=== PATIENT | female | born 1975 | race Caucasian/White ===

== ENCOUNTER 2022-06-16 09:15 | Outpatient (REF) | payer BC, SELFPAY ==
[2022-06-16 11:27] LABS: MANUAL DIFF FLAG NO
[2022-06-16 11:50] LABS: Basophils Percent Auto 0.6 % (0-2); Eosinophils Absolute Auto 0.3 X10*3/uL (0.0-0.4); Eosinophils Percent Auto 4.8 % (0-4); Hematocrit 44.7 % (37.0-47.0); Hemoglobin 14.3 g/dl (12.0-16.0); Imm Gran Abs Auto 0.02 X10*3/uL (0.00-0.03); Imm Gran Pct Auto 0.3 % (0.0-0.4); Lymphocytes Absolute Auto 2.1 X10*3/uL (1.2-4.9); Lymphocytes Percent Auto 32.8 % (20-40); Mean Corpuscular Hemoglobin 30.3 pg (27.0-33.0); Mean Corpuscular Volume 94.7 fL (80.0-98.0); Mean Platelet Volume 9.7 fL (9.4-12.3); Monocytes Absolute Auto 0.5 X10*3/uL (0.1-1.2); Neutrophils Absolute Auto 3.5 x10*3/uL (2.0-8.3); Neutrophils Percent Auto 54.5 % (45-73); Platelet Count 274 X10*3/uL (160-400); Red Blood Count 4.72 X10*6/uL (4.20-5.50); Red Cell Distribution Width 12.2 % (11.0-16.0); White Blood Count 6.5 X10*3/uL (4.8-10.8)
[2022-06-16 13:28] LABS: Alanine Aminotransferase 33 U/L (0-31); Albumin Level 4.2 g/dL (3.5-5.0); Alkaline Phosphatase 95 U/L (39-117); Anion Gap 9 (12-20); Aspartate Amino Transferase 18 U/L (5-31); Bilirubin Total 0.4 mg/dL (0.0-1.0); Blood Urea Nitrogen 19 mg/dL (9-16); Calcium 9.6 mg/dL (8.4-10.2); Carbon Dioxide 29 mmol/L (22-29); Chloride 106 mmol/L (96-108); Cholesterol 177 mg/dL; Estimated Glomerular Filt Rate > 60; Glucose Fasting 103 mg/dL (60-99); HDL Cholesterol 48 mg/dL; LDL Cholesterol Calculated 119 mg/dl; Potassium 4.1 mmol/L (3.3-5.1); Sodium 140 mmol/L (135-145); TSH reflex Free T4 1.47 uIU/mL (0.32-4.0); Triglycerides 54 mg/dL
[2022-06-17 18:48] LABS: Follicle Stimulating Hormone 124.8 mIU/mL; Lutenizing Hormone 64.4 mIU/mL
[2022-06-22 12:19] LABS: Vitamin D 25-OH, D2 <4 ng/mL; Vitamin D 25-OH, D3 24 ng/mL; Vitamin D 25-OH, Total 24 ng/mL (30-100)
== END 2022-06-16 09:16 | disposition home or self-care (01) ==
LOC: HO.MAMMO 09:15
PROVIDERS: PCP Internal Medicine; Visit Provider Internal Medicine
DX: Z00.01 Encounter for general adult medical examination with abnormal findings (principal); E66.09 Other obesity due to excess calories; R23.2 Flushing
CPT/HCPCS: 36415; 80053; 80061; 82306; 83001; 83002; 84443; 85025

== ENCOUNTER 2022-06-23 13:51 | Outpatient (REF) | payer BC, SELFPAY ==
--- NOTE | ~2022-06-23 | MM_ITS ---
EXAMINATION: MM SCREENING DIGITAL BREAST TOMOSYNTHESIS, BILATERAL CLINICAL INFORMATION: Screening. Asymptomatic. The lifetime risk of breast cancer based on the Tyrer-Cuzick Model is 14%. COMPARISON: Outside mammography: 08/09/2020, 06/18/2019, 06/16/2019 ([facility]) TECHNIQUE: Digital breast tomosynthesis is performed in both the craniocaudal and mediolateral oblique views along with computer-aided detection (CAD). Synthesized 2D images are generated from the tomosynthesis. FINDINGS: The breasts are heterogeneously dense, which may obscure small masses (ACR BI-RADS breast composition Category c). There is no developing density or mass or architectural abnormality. Small oval asymmetry central left breast on CC view is stable from prior outside studies. There are no abnormal calcifications on the left. The bilateral axilla are stable from prior exam. The skin contours are smooth. Right breast has loosely grouped calcifications mid upper outer quadrant. They are questionably increased since 2019. Patient will be recalled for additional magnification views to fully characterize. MM/MM tomosynthesis screening BI IMPRESSION: Right: -Calcifications mid upper outer quadrant possibly increased since prior outside studies. Left: -No mammographic evidence of malignancy. ASSESSMENT: BI-RADS 0: Incomplete - Need Additional Imaging Evaluation RECOMMENDATION: 1. Additional views of the right breast (magnification CC, magnification ML). 2. Radiology department staff will contact the patient for additional imaging. This patient's information was entered into a reminder system with a target due date for their next mammogram.
== END 2022-06-23 13:52 | disposition home or self-care (01) ==
LOC: HO.MAMMO 13:51
PROVIDERS: PCP Internal Medicine; Visit Provider Internal Medicine
DX: Z12.31 Encounter for screening mammogram for malignant neoplasm of breast (principal)
CPT/HCPCS: 77063; 77067

== ENCOUNTER 2022-06-29 12:52 | Outpatient (REF) | payer BC, SELFPAY ==
--- NOTE | ~2022-06-29 | MM_ITS ---
EXAMINATION: MM DIAGNOSTIC DIGITAL MAMMOGRAPHY, RIGHT CLINICAL INFORMATION: Recall from screening for loosely grouped calcifications mid upper outer right breast questionably increased since 2019. COMPARISON: Mammography: 06/23/2022, outside diagnostic right mammography 06/18/2019 and 06/16/2019 ([facility]) TECHNIQUE: Digital mammography is performed in the following views: Magnification CC, magnification ML FINDINGS: The breasts are heterogeneously dense, which may obscure small masses (ACR BI-RADS breast composition Category c). The additional magnification views show increased benign layering milk of calcium calcifications in the mid upper outer right breast since outside mammography 2019. Slightly more anterior in this area are non layering fine punctate round calcifications which are similar to the outside diagnostic exam. There are no significant changes. Results are discussed with the patient at time of visit. MM/MM added views RT IMPRESSION: No significant change in the right breast calcifications upper outer quadrant when compared with prior outside diagnostic exam 2019. ASSESSMENT: BI-RADS 2: Benign RECOMMENDATION: Routine annual mammography screening. This patient's information was entered into a reminder system with a target due date for their next mammogram.
== END 2022-06-29 12:53 | disposition home or self-care (01) ==
LOC: HO.MAMMO 12:52
PROVIDERS: PCP Internal Medicine; Visit Provider Internal Medicine
DX: R92.1 Mammographic calcification found on diagnostic imaging of breast (principal)
CPT/HCPCS: 77065

== ENCOUNTER 2023-06-06 11:34 | Outpatient (AMB) | payer BC, SELFPAY ==
--- NOTE | 2023-06-06 11:36 | MHC.PC.OV ---
Vital Signs 06/06/23 11:42 Height 5 ft 4 in Weight 214 lb 6 oz BMI 36.8 BP 112/64 Blood Pressure Location Rt brachial Position Sitting Pulse 79 Pulse Source Pulse Oximeter Pulse Oximetry (%) 96 Oxygen Delivery Method Room Air Intake Visit Reasons: Annual PE Allergies penicillins Adverse Reaction (Mild, Uncoded 05/31/22 11:57) Rash Medication List - Last Reconciled 06/06/23 by Dave Rodriguez MD No Known Home Meds Tobacco use date assessed: 06/06/23 Dental Screening Dental Screen Date: 06/06/23 Did you have a dental visit in the last 12 months?: Yes Did you have a dental problem in the last 6 months where you did not have access to dental care?: No Was dental information given to patient?: Patient has dentist HPI Annual PE HPI Details Patient is a 48-year-old female came in today for physical examination Patient is established with [facility] OBGYN breast exams and Pap smears are through them Patient is struggling with weight loss, BMI is 36.8 she has gained more weight since last year Patient says that she has tried weight watchers 3 times, she goes to gym 3 times a week and is careful with her diet but still has not been able to lose any weight. She works from home We discussed side effect of phentermine also that it is a controlled medication and will need monthly visits for monitoring Patient will have baseline labs done today and then we can start the medication. Print out of drug information given to the patient. Flu vaccine was given today [facility] Social History Housing: House Patient Tobacco Use Status: Never used Tobacco e-Cigarette/Vaping Use: Never Used service: No Current occupational status: employed Cognitive needs: No Hearing needs: No Vision needs: No Questionnaire PHQ-9 Over the last 2 weeks, how often have you been bothered by any of the following problems? 1. Little interest or pleasure in doing things: several days 2. Feeling down, depressed, or hopeless: several days 3. Trouble falling or staying asleep, or sleeping too much: several days 4. Feeling tired or having little energy: more than half the days 5. Poor appetite or overeating: not at all 6. Feeling bad about yourself - or that you are a failure or have let yourself or your family down: several days 7. Trouble concentrating on things, such as reading the newspaper or watching television: not at all 8. Moving or speaking so slowly that other people could have noticed. Or the opposite - being so fidgety or restless that you have been moving around a lot more than usual: not at all 9. Thoughts that you would be better off or of hurting yourself in some way: not at all Total score: 6 Depression Screening Interpretation: Negative Depression Screening Done: Yes 83830 - PHQ-9 Billing: Yes Source: Developed by Drs. Alexandre Torres, Sydnee Bragg, Quirino Acharya and colleagues, with an educational hernando from [employer]. Thrive Questionnaire Date Thrive assessed: 05/31/22 AUDIT C Alcohol Use Questionnaire (AUDIT-C) 1. How often do you have a drink containing alcohol?: Monthly or less 2. How many drinks containing alcohol do you have on a typical day when you are drinking?: 1 or 2 3. How often do you have six or more drinks on one occasion?: Never Total Score: 1 Score Reviewed/Action Taken: Yes SANDRA-7 AMB Questionnaire SANDRA-7 Date SANDRA - 7 assessed: 06/06/23 Feeling nervous, anxious, or on edge: 1 = Several days Not being able to stop or control worryin = Not at all Worrying too much about different things: 0 = Not at all Trouble relaxin = Not at all Being so restless that it is hard to sit still: 0 = Not at all Becoming easily annoyed or irritable: 1 = Several days Feeling afraid as if something awful might happen: 0 = Not at all Total SANDRA-7 score (0-4 normal; 5-9 mild; 10-14 moderate; 15-21 severe): 2 Source: Developed by Drs. Alexandre Torres, Sydnee Bragg, Quirino Acharya and colleagues, with an educational hernando from [employer]. SANDRA-7 Assessment Billing SANDRA-7 Assessment Tool: SANDRA-7 Assessment 08416 Review of Systems Const Denies chills, Denies fever(s) and Denies headache(s) Eyes Denies blurry vision ENT Denies headache(s), Denies nasal discharge, Denies nasal obstruction, Denies odynophagia and Denies sinus pain Card Denies chest pain at rest and Denies chest pain with activity Resp Denies cough and Denies hemoptysis GI Denies diarrhea, Denies odynophagia, Denies vomiting and Denies hematemesis Reports as per HPI Musc Denies abnormal gait Skin/Breast Reports as per HPI Neuro Denies Neuro-related abnormal movements, Denies Abnormal speech present, Denies abnormal gait, Denies headache(s) and Denies Sensory deficit (Neuro) Psych Denies mood swings and Denies paranoia Endo Reports as per HPI Armani/Lymph Reports as per HPI Aller/Immun Reports as per HPI Physical exam (Primary Care) Vital Signs: Last Vital Signs Pulse 79 06/06/23 11:42 BP 112/64 06/06/23 11:42 Pulse Ox 96 06/06/23 11:42 Oxygen Delivery Method Room Air 06/06/23 11:42 BMI result Body Mass Index 36.8 Tobacco/Smoking Status: Tobacco use Status Tobacco use date assessed 06/06/23 06/06/23 11:38 Patient Tobacco Use Status Never used Tobacco 06/06/23 11:38 e-Cigarette/Vaping Use Never Used 06/06/23 11:38 PHQ-9: PHQ-9 Score PHQ-9: Total score 6 06/06/23 12:21 Depression Screening Interpretation: Negative Thrive Assessment: Date of Thrive Assessment Date Thrive assessed 05/31/22 06/06/23 11:38 Const General: cooperative, comfortable and no acute distress Orientation/consciousness: patient oriented x3 HENMT Head: Yes normocephalic and Yes atraumatic Eyes General: appearance normal, both eyes and all related structures Pupils: Equal, round and reactive pupils present EOM: EOMs intact bilaterally Neck Neck: Yes supple and No lymphadenopathy Thyroid: Thyroid normal Lymphatic: no lymphadenopathy noted Resp Effort & Inspection: normal respiratory effort and able to speak in complete sentences Auscultation: clear to auscultation bilaterally Cardio Heart sounds: S1 normal heart sound present and S2 normal heart sound present GI Palpation (GI): Soft to palpation and nontender Auscultation: normal bowel sounds General: Yes no CVA tenderness Back/Spine/Pelvis Back: no CVA tenderness Skin General skin exam: elasticity normal and turgor normal Neuro General: patient oriented x3 and gait normal Cranial nerves: Yes Equal, round and reactive pupils present Speech: No Abnormal speech present Sensory Exam: No Sensory deficit (Neuro) Coordination: tandem gait normal and Romberg test negative Extrem General: Yes normal exam except as noted and No edema Office Procedures Flu Questionnaire Does the patient have a severe egg allergy?: No Does the patient have severe life threatening allergies?: No Does the patient have a fever or illness today?: No Has the patient ever had Guillain-[place] Syndrome?: No Has the patient ever had any past reaction to a flu shot?: No Immunizations flu vacc [id number] 6mos up(PF) 60 mcg(15 mcgx4)/0.5 mL IM syringe Performing Provider: Dave Rodriguez MD Performing Location: [facility] Administered by: Micah Whipple CMA on 06/06/23 12:10 Dose Route Admin Location Dispensed Lot Number Expiration Date NDC [place] 0.5 mL IM Left Deltoid 0.5 mL [id number] 01/06/24 [id number] [employer] VIS Given Date VIS Provided VIS Publication Date 06/06/23 Single Vaccine 21 Eligibility Eligibility Date Funding Source Not [facility] Eligible 06/06/23 Private Assessment and Plan Assessment & Plan (1) Encounter for general adult medical examination with abnormal findings: Code(s): Z00.01 - Encounter for general adult medical examination with abnormal findings (2) Obesity due to excess calories: Code(s): E66.09 - Other obesity due to excess calories Qualifiers: Body mass index: BMI 36.0-36.9 Obesity classification: adult class 2 (BMI 35 - 39.9) Serious obesity comorbidity presence: without serious comorbidity Qualified Code(s): E66.09 - Other obesity due to excess calories; Z68.36 - Body mass index [BMI] 36.0-36.9, adult (3) Impaired fasting blood sugar: Code(s): R73.01 - Impaired fasting glucose (4) Vitamin D deficiency: Code(s): E55.9 - Vitamin D deficiency, unspecified Plan Patient is a 48-year-old female came in today for physical examination Patient is established with [facility] OBGYN breast exams and Pap smears are through them Patient is struggling with weight loss, BMI is 36.8 she has gained more weight since last year Patient says that she has tried weight watchers 3 times, she goes to gym 3 times a week and is careful with her diet but still has not been able to lose any weight. She works from home We discussed side effect of phentermine also that it is a controlled medication and will need monthly visits for monitoring Patient will have baseline labs done today and then we can start the medication. Print out of drug information given to the patient. Flu vaccine was given today Patient will have Cologuard test rather than colonoscopy Mammogram is up-to-date Orders: Orders Complete Blood Count Auto Diff Today E55.9 - Vitamin D deficiency, unspecified, E66.09 - Other obesity due to excess calories, R73.01 - Impaired fasting glucose, Z00.01 - Encounter for general adult medical examination with abnormal findings Comprehensive [place]. Panel Fast Today E55.9 - Vitamin D deficiency, unspecified, E66.09 - Other obesity due to excess calories, R73.01 - Impaired fasting glucose, Z00.01 - Encounter for general adult medical examination with abnormal findings Lipid Panel Today E55.9 - Vitamin D deficiency, unspecified, E66.09 - Other obesity due to excess calories, R73.01 - Impaired fasting glucose, Z00.01 - Encounter for general adult medical examination with abnormal findings TSH reflex Free T4 Today E55.9 - Vitamin D deficiency, unspecified, E66.09 - Other obesity due to excess calories, R73.01 - Impaired fasting glucose, Z00.01 - Encounter for general adult medical examination with abnormal findings Influenza [id number] Immunization Today Z23 - Encounter for immunization Vitamin D 25-OH (D2 and D3) Today E55.9 - Vitamin D deficiency, unspecified, E66.09 - Other obesity due to excess calories, R73.01 - Impaired fasting glucose, Z00.01 - Encounter for general adult medical examination with abnormal findings Medications: New phentermine must administer 2 hours after breakfast 15 mg PO DAILY 30 caps 0RF Coding Level of Care Code Est Pt Prev Care 40-64y(25041) Diagnoses Encounter for general adult medical examination with abnormal findings Z00.01 Class 2 obesity due to excess calories without serious comorbidity with body mass index (BMI) of 36.0 to 36.9 in adult E66.09; Z68.36 Body mass index: BMI 36.0-36.9 Obesity classification: adult class 2 (BMI 35 - 39.9) Serious obesity comorbidity presence: without serious comorbidity Impaired fasting blood sugar R73.01 Vitamin D deficiency E55.9 Additional Codes SANDRA-7 Assessment Billing - SANDRA-7 Assessment Tool: SANDRA-7 Assessment [id number] ([id number])
[2023-06-06 11:42] VITALS: BP 112/64; PULSE 79; O2SAT 96; BMI 36.8
== END 2023-06-06 12:31 | disposition home or self-care (01) ==
PROVIDERS: Visit Provider Internal Medicine
DX: Z00.00 Encounter for general adult medical examination without abnormal findings (principal); E66.09 Other obesity due to excess calories; Z68.36 Body mass index [BMI] 36.0-36.9, adult; Z23 Encounter for immunization; R73.01 Impaired fasting glucose; E55.9 Vitamin D deficiency, unspecified
CPT/HCPCS: 90471; 90686; 99396

== ENCOUNTER 2023-06-07 08:52 | Outpatient (REF) | payer BC, SELFPAY ==
[2023-06-07 11:52] LABS: MANUAL DIFF FLAG NO
[2023-06-07 12:08] LABS: Basophils Percent Auto 0.5 % (0-2); Eosinophils Absolute Auto 0.2 X10*3/uL (0.0-0.4); Hematocrit 46.2 % (37.0-47.0); Hemoglobin 14.6 g/dl (12.0-16.0); Imm Gran Abs Auto 0.03 X10*3/uL (0.00-0.03); Imm Gran Pct Auto 0.4 % (0.0-0.4); Lymphocytes Absolute Auto 1.9 X10*3/uL (1.2-4.9); Lymphocytes Percent Auto 25.1 % (20-40); Mean Corpuscular HGB Conc 31.6 g/dl (31.0-35.0); Mean Corpuscular Hemoglobin 30.2 pg (27.0-33.0); Mean Corpuscular Volume 95.7 fL (80.0-98.0); Mean Platelet Volume 10.2 fL (9.4-12.3); Monocytes Absolute Auto 0.5 X10*3/uL (0.1-1.2); Monocytes Percent Auto 6.3 % (2-11); Neutrophils Absolute Auto 4.8 x10*3/uL (2.0-8.3); Neutrophils Percent Auto 64.7 % (45-73); Platelet Count 275 X10*3/uL (160-400); Red Blood Count 4.83 X10*6/uL (4.20-5.50); Red Cell Distribution Width 12.6 % (11.0-16.0); White Blood Count 7.4 X10*3/uL (4.8-10.8)
[2023-06-07 12:32] LABS: Alanine Aminotransferase 22 U/L (0-31); Albumin Level 4.1 g/dL (3.5-5.0); Alkaline Phosphatase 83 U/L (39-117); Anion Gap 11 (12-20); Aspartate Amino Transferase 17 U/L (5-31); Bilirubin Total 0.3 mg/dL (0.0-1.0); Blood Urea Nitrogen 17 mg/dL (9-16); Carbon Dioxide 28 mmol/L (22-29); Chloride 108 mmol/L (96-108); Cholesterol 174 mg/dL (<200); Estimated Glomerular Filt Rate > 60; Glucose Fasting 110 mg/dL (60-99); HDL Cholesterol 48 mg/dL (>40); LDL Cholesterol Calculated 110 mg/dL (<100); Potassium 4.5 mmol/L (3.3-5.1); Sodium 142 mmol/L (135-145); Total Protein 7.4 g/dL (6.5-8.0); Triglycerides 82 mg/dL (<150)
[2023-06-07 12:53] LABS: TSH reflex Free T4 1.16 uIU/mL (0.32-4.0)
[2023-06-11 15:19] LABS: Vitamin D 25-OH, D2 <4 ng/mL; Vitamin D 25-OH, D3 20 ng/mL; Vitamin D 25-OH, Total 20 ng/mL (30-100)
== END 2023-06-07 08:53 | disposition home or self-care (01) ==
LOC: HO.HMGCLDS 08:52
PROVIDERS: PCP Internal Medicine; Visit Provider Internal Medicine
DX: Z00.01 Encounter for general adult medical examination with abnormal findings (principal); E66.09 Other obesity due to excess calories; R73.01 Impaired fasting glucose; E55.9 Vitamin D deficiency, unspecified
CPT/HCPCS: 36415; 80053; 80061; 82306; 84443; 85025

== ENCOUNTER 2023-07-11 13:09 | Outpatient (AMB) | payer BC, SELFPAY ==
[2023-07-11 13:14] VITALS: BP 120/72; PULSE 80; O2SAT 96; BMI 34.9
--- NOTE | 2023-07-11 13:14 | MHC.PC.OV ---
Vital Signs 07/11/23 13:14 Height 5 ft 4 in Weight 203 lb 8 oz BMI 34.9 BP 120/72 Blood Pressure Location Rt brachial Position Sitting Pulse 80 Pulse Source Pulse Oximeter Pulse Oximetry (%) 96 Oxygen Delivery Method Room Air Intake Visit Reasons: 1 month follow up Allergies penicillins Adverse Reaction (Mild, Uncoded 05/31/22 11:57) Rash Medication List - Last Reconciled 07/11/23 by Dave Rodriguez MD phentermine 15 mg PO DAILY Tobacco use date assessed: 07/11/23 Dental Screening Dental Screen Date: 07/11/23 Did you have a dental visit in the last 12 months?: Yes Did you have a dental problem in the last 6 months where you did not have access to dental care?: No Was dental information given to patient?: Patient has dentist HPI 1 month follow up HPI Details Patient is a 48-year-old female came in today to be evaluated for medication side effect Patient was started on phentermine she was able to lose weight on it From 214 lb 6 oz June 06, and today she is 203 lb and 8 oz . Patient is tolerating medication there are no side effects. She is also going to start eating healthy and exercise more. She has been on vacation of this time. I have sent another month of medication we will re-evaluate in 4 weeks [facility] Social History Housing: House Patient Tobacco Use Status: Never used Tobacco e-Cigarette/Vaping Use: Never Used service: No Current occupational status: employed Cognitive needs: No Hearing needs: No Vision needs: No Questionnaire PHQ-9 Over the last 2 weeks, how often have you been bothered by any of the following problems? 1. Little interest or pleasure in doing things: several days 2. Feeling down, depressed, or hopeless: several days 3. Trouble falling or staying asleep, or sleeping too much: not at all 4. Feeling tired or having little energy: several days 5. Poor appetite or overeating: not at all 6. Feeling bad about yourself - or that you are a failure or have let yourself or your family down: not at all 7. Trouble concentrating on things, such as reading the newspaper or watching television: not at all 8. Moving or speaking so slowly that other people could have noticed. Or the opposite - being so fidgety or restless that you have been moving around a lot more than usual: not at all 9. Thoughts that you would be better off or of hurting yourself in some way: not at all Total score: 3 Depression Screening Interpretation: Negative Depression Screening Done: Yes 54545 - PHQ-9 Billing: Yes Source: Developed by Drs. Alexandre Torres, Sydnee Bragg, Quirino Acharya and colleagues, with an educational hernando from [employer]. Thrive Questionnaire Date Thrive assessed: 07/11/23 I am a: Patient What is your living situation today?: I have a steady place to live Within the past 12 months, did the food you bought not last and you didn't have the money to get more?: Never true Within the past 12 months, did you worry whether your food would run out before you got money to buy more?: Never true Do you have trouble paying for medicines?: No Do you have trouble getting transportation to medical appointments?: No Do you have trouble paying your heating and electricity bill?: No Do you have trouble taking care of your child, family member or friend?: No Do you have trouble with day-to-day activities such as bathing, preparing meals, shopping, managing finances, etc.?: No Are you currently unemployed and looking for a job?: No Are you interested in more education?: No Please select the resources that you would like help with: None Currently or been in a relationship where the following occur: no concerns reported AUDIT C Alcohol Use Questionnaire (AUDIT-C) 1. How often do you have a drink containing alcohol?: Monthly or less 2. How many drinks containing alcohol do you have on a typical day when you are drinking?: 1 or 2 3. How often do you have six or more drinks on one occasion?: Never Total Score: 1 Score Reviewed/Action Taken: Yes SANDRA-7 AMB Questionnaire SANDRA-7 Date SANDRA - 7 assessed: 07/11/23 Feeling nervous, anxious, or on edge: 2 = More than half the days Not being able to stop or control worryin = Several days Worrying too much about different things: 1 = Several days Trouble relaxin = Not at all Being so restless that it is hard to sit still: 0 = Not at all Becoming easily annoyed or irritable: 0 = Not at all Feeling afraid as if something awful might happen: 0 = Not at all Total SANDRA-7 score (0-4 normal; 5-9 mild; 10-14 moderate; 15-21 severe): 4 Source: Developed by Drs. Alexandre Torres, Sydnee Bragg, Quirino Acharya and colleagues, with an educational hernando from [employer]. SANDRA-7 Assessment Billing SANDRA-7 Assessment Tool: SANDRA-7 Assessment 43247 Review of Systems Const Denies chills and Denies fever(s) ENT Denies epistaxis and Denies nasal discharge Card Denies chest pain Resp Denies chest congestion, Denies cough and Denies hemoptysis GI Denies diarrhea and Denies nausea Skin/Breast Denies rash Neuro Reports no additional complaints Psych Reports no additional complaints Endo Reports no additional complaints Physical exam (Primary Care) Vital Signs: Last Vital Signs Pulse 80 07/11/23 13:14 BP 120/72 07/11/23 13:14 Pulse Ox 96 07/11/23 13:14 Oxygen Delivery Method Room Air 07/11/23 13:14 BMI result Body Mass Index 34.9 Tobacco/Smoking Status: Tobacco use Status Tobacco use date assessed 07/11/23 07/11/23 13:17 Patient Tobacco Use Status Never used Tobacco 07/11/23 13:17 e-Cigarette/Vaping Use Never Used 07/11/23 13:17 PHQ-9: PHQ-9 Score PHQ-9: Total score 3 07/11/23 13:29 Depression Screening Interpretation: Negative Thrive Assessment: Date of Thrive Assessment Date Thrive assessed 07/11/23 07/11/23 13:29 Currently or been in a relationship where the following occur: no concerns reported Const General: cooperative, comfortable and no acute distress Orientation/consciousness: patient oriented x3 HENMT Head: Yes normocephalic Eyes General: appearance normal, both eyes and all related structures Neck Neck: Yes supple Resp Effort & Inspection: normal respiratory effort, no cough and no stridor Cardio Rhythm: regular rhythm Heart sounds: S1 normal heart sound present and S2 normal heart sound present Skin General skin exam: turgor normal Neuro General: patient oriented x3, tone normal and moves all extremities Extrem Right lower extremity: no edema Left lower extremity: no edema Assessment and Plan Assessment & Plan (1) Obesity due to excess calories: Code(s): E66.09 - Other obesity due to excess calories Qualifiers: Obesity classification: adult class 2 (BMI 35 - 39.9) Serious obesity comorbidity presence: without serious comorbidity Body mass index: BMI 36.0-36.9 Qualified Code(s): E66.09 - Other obesity due to excess calories; Z68.36 - Body mass index [BMI] 36.0-36.9, adult Plan Patient is a 48-year-old female came in today to be evaluated for medication side effect Patient was started on phentermine she was able to lose weight on it From 214 lb 6 oz June 06, and today she is 203 lb and 8 oz . Patient is tolerating medication there are no side effects. She is also going to start eating healthy and exercise more. She has been on vacation of this time. I have sent another month of medication we will re-evaluate in 4 weeks Medications: Refilled phentermine must administer 2 hours after breakfast 15 mg PO DAILY 30 caps 0RF Coding Level of Care Code Est Pt Level 3 (01578) Diagnoses Class 2 obesity due to excess calories without serious comorbidity with body mass index (BMI) of 36.0 to 36.9 in adult E66.09; Z68.36 Obesity classification: adult class 2 (BMI 35 - 39.9) Serious obesity comorbidity presence: without serious comorbidity Body mass index: BMI 36.0-36.9 Additional Codes SANDRA-7 Assessment Billing - SANDRA-7 Assessment Tool: SANDRA-7 Assessment [id number] ([id number])
== END 2023-07-11 13:29 | disposition home or self-care (01) ==
PROVIDERS: PCP Internal Medicine; Visit Provider Internal Medicine
DX: E66.09 Other obesity due to excess calories (principal); Z68.36 Body mass index [BMI] 36.0-36.9, adult
CPT/HCPCS: 99213

== ENCOUNTER 2023-08-10 11:40 | Outpatient (AMB) | payer BC, SELFPAY ==
[2023-08-10 11:41] VITALS: BP 124/82; PULSE 70; O2SAT 97; BMI 34.0
--- NOTE | 2023-08-10 11:41 | A.OFFPC_ITS ---
Vital Signs 08/10/23 11:41 Height 5 ft 4 in Weight 198 lb 4 oz BMI 34.0 BP 124/82 Blood Pressure Location Rt brachial Position Sitting Pulse 70 Pulse Source Pulse Oximeter Pulse Oximetry (%) 97 Oxygen Delivery Method Room Air Intake Visit Reasons: 4 week fu Allergies penicillins Adverse Reaction (Mild, Uncoded 05/31/22 11:57) Rash Medication List - Last Reconciled 08/10/23 by Dave Rodriguez MD phentermine 15 mg PO DAILY Tobacco use date assessed: 08/10/23 Dental Screening Dental Screen Date: 08/10/23 Did you have a dental visit in the last 12 months?: Yes Did you have a dental problem in the last 6 months where you did not have access to dental care?: No Was dental information given to patient?: Patient has dentist HPI 4 week fu HPI Details Patient is a 48-year-old female came in today for her monthly visit for weight loss Patient's BMI is 34.0, she was able to lose 5 in 1 month on phentermine 15 mg Patient is having severe constipation since she started the medication I prescribing lactulose that she need to start along with Senokot S2 tablets every night She may continue MiraLax and prunes as well If this does not work then we need to stop the phentermine She had palpitation at night, patient is blaming stress at work We did EKG today which shows normal sinus rhythm 73 beats per minute, rhythm is regular Possible left atrial enlargement, I ordered echocardiogram as patient have family history of atrial fibrillation in her mother which started in her 60s She has no chest pain no shortness a breath nausea vomiting [facility] Social History Housing: House Patient Tobacco Use Status: Never used Tobacco e-Cigarette/Vaping Use: Never Used service: No Current occupational status: employed Cognitive needs: No Hearing needs: No Vision needs: No Questionnaire PHQ-9 Over the last 2 weeks, how often have you been bothered by any of the following problems? 1. Little interest or pleasure in doing things: several days 2. Feeling down, depressed, or hopeless: several days 3. Trouble falling or staying asleep, or sleeping too much: several days 4. Feeling tired or having little energy: several days 5. Poor appetite or overeating: not at all 6. Feeling bad about yourself - or that you are a failure or have let yourself or your family down: not at all 7. Trouble concentrating on things, such as reading the newspaper or watching television: several days 8. Moving or speaking so slowly that other people could have noticed. Or the opposite - being so fidgety or restless that you have been moving around a lot more than usual: not at all 9. Thoughts that you would be better off or of hurting yourself in some way: not at all Total score: 5 Depression Screening Interpretation: Negative Depression Screening Done: Yes 88621 - PHQ-9 Billing: Yes Source: Developed by Drs. Alexandre Torres, Sydnee Bragg, Quirino Acharya and colleagues, with an educational hernando from [employer]. Thrive Questionnaire Date Thrive assessed: 08/10/23 I am a: Patient What is your living situation today?: I have a steady place to live Within the past 12 months, did the food you bought not last and you didn't have the money to get more?: Never true Within the past 12 months, did you worry whether your food would run out before you got money to buy more?: Never true Do you have trouble paying for medicines?: No Do you have trouble getting transportation to medical appointments?: No Do you have trouble paying your heating and electricity bill?: No Do you have trouble taking care of your child, family member or friend?: No Do you have trouble with day-to-day activities such as bathing, preparing meals, shopping, managing finances, etc.?: No Are you currently unemployed and looking for a job?: No Are you interested in more education?: No Please select the resources that you would like help with: None Currently or been in a relationship where the following occur: no concerns reported THRIVE Score: 0 AUDIT C Alcohol Use Questionnaire (AUDIT-C) 1. How often do you have a drink containing alcohol?: Monthly or less 2. How many drinks containing alcohol do you have on a typical day when you are drinking?: 1 or 2 3. How often do you have six or more drinks on one occasion?: Never Total Score: 1 Score Reviewed/Action Taken: Yes SANDRA-7 AMB Questionnaire SANDRA-7 Date SANDRA - 7 assessed: 08/10/23 Feeling nervous, anxious, or on edge: 1 = Several days Not being able to stop or control worryin = Several days Worrying too much about different things: 1 = Several days Trouble relaxin = Not at all Being so restless that it is hard to sit still: 0 = Not at all Becoming easily annoyed or irritable: 1 = Several days Feeling afraid as if something awful might happen: 0 = Not at all Total SANDRA-7 score (0-4 normal; 5-9 mild; 10-14 moderate; 15-21 severe): 4 Source: Developed by Drs. Alexandre Torres, Sydnee Bragg, Quirino Acharya and colleagues, with an educational hernando from [employer]. SANDRA-7 Assessment Billing SANDRA-7 Assessment Tool: SANDRA-7 Assessment 89573 Review of Systems Const Denies chills and Denies fever(s) ENT Denies epistaxis and Denies nasal discharge Card Denies chest pain Resp Denies chest congestion, Denies cough and Denies hemoptysis GI Denies diarrhea and Denies nausea Skin/Breast Denies rash Neuro Reports no additional complaints Psych Reports no additional complaints Endo Reports no additional complaints Physical exam (Primary Care) Vital Signs: Last Vital Signs Pulse 70 08/10/23 11:41 BP 124/82 08/10/23 11:41 Pulse Ox 97 08/10/23 11:41 Oxygen Delivery Method Room Air 08/10/23 11:41 BMI result Body Mass Index 34.0 Tobacco/Smoking Status: Tobacco use Status Tobacco use date assessed 08/10/23 08/10/23 11:43 Patient Tobacco Use Status Never used Tobacco 08/10/23 11:43 e-Cigarette/Vaping Use Never Used 08/10/23 11:43 PHQ-9: PHQ-9 Score PHQ-9: Total score 5 08/10/23 12:41 Depression Screening Interpretation: Negative Thrive Assessment: Date of Thrive Assessment Date Thrive assessed 08/10/23 08/10/23 12:13 Currently or been in a relationship where the following occur: no concerns reported Const General: cooperative, comfortable and no acute distress Orientation/consciousness: patient oriented x3 HENMT Head: Yes normocephalic Eyes General: appearance normal, both eyes and all related structures Neck Neck: Yes supple Resp Effort & Inspection: normal respiratory effort, no cough and no stridor Cardio Rhythm: regular rhythm Heart sounds: S1 normal heart sound present and S2 normal heart sound present Skin General skin exam: turgor normal Neuro General: patient oriented x3, tone normal and moves all extremities Extrem Right lower extremity: no edema Left lower extremity: no edema Office Procedures EKG 92200-[id number], Complete Assessment and Plan Assessment & Plan (1) Palpitation: Code(s): R00.2 - Palpitations (2) Abnormal EKG: Code(s): R94.31 - Abnormal electrocardiogram [ECG] [EKG] (3) Obesity due to excess calories: Code(s): E66.09 - Other obesity due to excess calories Qualifiers: Body mass index: BMI 36.0-36.9 Obesity classification: adult class 2 (BMI 35 - 39.9) Serious obesity comorbidity presence: without serious comorbidity Qualified Code(s): E66.09 - Other obesity due to excess calories; Z68.36 - Body mass index [BMI] 36.0-36.9, adult (4) Constipation by delayed colonic transit: Code(s): K59.01 - Slow transit constipation Plan Patient is a 48-year-old female came in today for her monthly visit for weight loss Patient's BMI is 34.0, she was able to lose 5 in 1 month on phentermine 15 mg Patient is having severe constipation since she started the medication I prescribing lactulose that she need to start along with Senokot S2 tablets every night She may continue MiraLax and prunes as well If this does not work then we need to stop the phentermine She had palpitation at night, patient is blaming stress at work We did EKG today which shows normal sinus rhythm 73 beats per minute, rhythm is regular Possible left atrial enlargement, I ordered echocardiogram as patient have family history of atrial fibrillation in her mother which started in her 60s She has no chest pain no shortness a breath nausea vomiting Orders: Orders AMB EKG-In Office Today R00.2 - Palpitations CA echo transthoracic complete Today R94.31 - Abnormal electrocardiogram [ECG] [EKG] Medications: New lactulose 10 grams (15 mL) PO BEDTIME 600 mL 0RF Constipation Refilled phentermine must administer 2 hours after breakfast 15 mg PO DAILY 30 caps 0RF Coding Level of Care Code Est Pt Level 4 (80188) Diagnoses Palpitation R00.2 Abnormal EKG R94.31 Class 2 obesity due to excess calories without serious comorbidity with body mass index (BMI) of 36.0 to 36.9 in adult E66.09; Z68.36 Body mass index: BMI 36.0-36.9 Obesity classification: adult class 2 (BMI 35 - 39.9) Serious obesity comorbidity presence: without serious comorbidity Constipation by delayed colonic transit K59.01 CPT Codes EKG - CPT: 07844-[id number], Complete ([id number]) Additional Codes SANDRA-7 Assessment Billing - SANDRA-7 Assessment Tool: SANDRA-7 Assessment [id number] ([id number])
== END 2023-08-10 16:04 | disposition home or self-care (01) ==
PROVIDERS: PCP Internal Medicine; Visit Provider Internal Medicine
DX: R00.2 Palpitations (principal); R94.31 Abnormal electrocardiogram [ECG] [EKG]; E66.09 Other obesity due to excess calories; Z68.36 Body mass index [BMI] 36.0-36.9, adult; K59.01 Slow transit constipation
CPT/HCPCS: 93000; 99214

== ENCOUNTER 2023-09-05 12:30 | Outpatient (AMB) | payer BC, SELFPAY ==
--- NOTE | 2023-09-05 12:37 | A.OFFPC_ITS ---
Vital Signs 09/05/23 12:39 Height 5 ft 4 in Weight 197 lb 6 oz BMI 33.9 BP 124/80 Blood Pressure Location Rt brachial Position Sitting Pulse 75 Pulse Source Pulse Oximeter Pulse Oximetry (%) 93 Oxygen Delivery Method Room Air Intake Visit Reasons: 4 WK F/U per [place] Allergies penicillins Adverse Reaction (Mild, Uncoded 05/31/22 11:57) Rash Medication List - Last Reconciled 09/05/23 by Dave Rodriguez MD lactulose 20 grams (30 mL) PO BEDTIME 90 days phentermine 37.5 mg PO DAILY polyethylene glycol 3350 (Miralax) 17 grams PO DAILY 90 days topiramate (Topamax) 25 mg PO DAILY Tobacco use date assessed: 09/05/23 Dental Screening Dental Screen Date: 09/05/23 Did you have a dental visit in the last 12 months?: Yes Did you have a dental problem in the last 6 months where you did not have access to dental care?: No Was dental information given to patient?: Patient has dentist HPI 4 WK F/U per [place] HPI Details Doing well with phentermine however was not able to lose more than 1 lb Increasing the dose of phentermine 37.5, and adding Topamax 25 mg Constipation is slightly better with lactulose 15 mL I am increasing the dose to 20 mL, adding MiraLax, continue senna as [id number] 2 tablets daily Follow-up 4 weeks [facility] Social History Housing: House Patient Tobacco Use Status: Never used Tobacco e-Cigarette/Vaping Use: Never Used service: No Current occupational status: employed Cognitive needs: No Hearing needs: No Vision needs: No Questionnaire Thrive Questionnaire Date Thrive assessed: 08/10/23 AUDIT C Alcohol Use Questionnaire (AUDIT-C) 1. How often do you have a drink containing alcohol?: Monthly or less 2. How many drinks containing alcohol do you have on a typical day when you are drinking?: 1 or 2 3. How often do you have six or more drinks on one occasion?: Never Total Score: 1 Score Reviewed/Action Taken: Yes SANDRA-7 AMB Questionnaire SANDRA-7 Date SANDRA - 7 assessed: 08/10/23 Source: Developed by Drs. Alexandre Torres, Sydnee Bragg, Quirino Acharya and colleagues, with an educational hernando from [employer]. Review of Systems Const Denies chills and Denies fever(s) ENT Denies epistaxis and Denies nasal discharge Card Denies chest pain Resp Denies chest congestion, Denies cough and Denies hemoptysis GI Denies diarrhea and Denies nausea Skin/Breast Denies rash Neuro Reports no additional complaints Psych Reports no additional complaints Endo Reports no additional complaints Physical exam (Primary Care) Vital Signs: Last Vital Signs Pulse 75 09/05/23 12:39 BP 124/80 09/05/23 12:39 Pulse Ox 93 09/05/23 12:39 Oxygen Delivery Method Room Air 09/05/23 12:39 BMI result Body Mass Index 33.9 Tobacco/Smoking Status: Tobacco use Status Tobacco use date assessed 09/05/23 09/05/23 12:41 Patient Tobacco Use Status Never used Tobacco 09/05/23 12:41 e-Cigarette/Vaping Use Never Used 09/05/23 12:41 Thrive Assessment: Date of Thrive Assessment Date Thrive assessed 08/10/23 09/05/23 12:41 Const General: cooperative, comfortable and no acute distress Orientation/consciousness: patient oriented x3 HENMT Head: Yes normocephalic Eyes General: appearance normal, both eyes and all related structures Neck Neck: Yes supple Resp Effort & Inspection: normal respiratory effort, no cough and no stridor Cardio Rhythm: regular rhythm Heart sounds: S1 normal heart sound present and S2 normal heart sound present Skin General skin exam: turgor normal Neuro General: patient oriented x3, tone normal and moves all extremities Extrem Right lower extremity: no edema Left lower extremity: no edema Assessment and Plan Assessment & Plan (1) Obesity due to excess calories: Code(s): E66.09 - Other obesity due to excess calories Qualifiers: Obesity classification: adult class 2 (BMI 35 - 39.9) Serious obesity comorbidity presence: without serious comorbidity Body mass index: BMI 36.0- 36.9 Qualified Code(s): E66.09 - Other obesity due to excess calories; Z68.36 - Body mass index [BMI] 36.0-36.9, adult (2) Constipation by delayed colonic transit: Code(s): K59.01 - Slow transit constipation Plan Doing well with phentermine however was not able to lose more than 1 lb Increasing the dose of phentermine 37.5, and adding Topamax 25 mg Constipation is slightly better with lactulose 15 mL I am increasing the dose to 20 mL, adding MiraLax, continue senna as [id number] 2 tablets daily Follow-up 4 weeks Medications: New topiramate (Topamax) 25 mg PO DAILY 30 tabs 0RF polyethylene glycol 3350 (Miralax) 17 grams PO DAILY 1,530 grams 0RF 90 days Changed From phentermine must administer 2 hours after breakfast 15 mg PO DAILY 30 caps 0RF To phentermine must administer 2 hours after breakfast 37.5 mg PO DAILY 30 caps 0RF From lactulose 10 grams (15 mL) PO BEDTIME 600 mL 0RF Constipation To lactulose 20 grams (30 mL) PO BEDTIME 2,700 mL 0RF Constipation 90 days Coding Level of Care Code Est Pt Level 3 (01268) Diagnoses Class 2 obesity due to excess calories without serious comorbidity with body mass index (BMI) of 36.0 to 36.9 in adult E66.09; Z68.36 Obesity classification: adult class 2 (BMI 35 - 39.9) Serious obesity comorbidity presence: without serious comorbidity Body mass index: BMI 36.0-36.9 Constipation by delayed colonic transit K59.01
[2023-09-05 12:39] VITALS: BP 124/80; PULSE 75; O2SAT 93; BMI 33.9
== END 2023-09-05 13:21 | disposition home or self-care (01) ==
PROVIDERS: PCP Internal Medicine; Visit Provider Internal Medicine
DX: E66.09 Other obesity due to excess calories (principal); Z68.36 Body mass index [BMI] 36.0-36.9, adult; K59.01 Slow transit constipation
CPT/HCPCS: 99213

== ENCOUNTER → 2023-09-06 09:58 | Outpatient (REF) | payer BC, SELFPAY ==
--- NOTE | ~2023-09-06 | MM_ITS ---
EXAMINATION: MM SCREENING DIGITAL BREAST TOMOSYNTHESIS, BILATERAL CLINICAL INFORMATION: Screening. Asymptomatic. COMPARISON: Mammography: This study is compared with prior exams dating back to 2019. TECHNIQUE: Digital breast tomosynthesis is performed in both the craniocaudal and mediolateral oblique views along with computer-aided detection (CAD). Synthesized 2D images are generated from the tomosynthesis. FINDINGS: The breasts are heterogeneously dense, which may obscure small masses (ACR BI-RADS breast composition Category c). There are no significant masses, abnormal calcifications, or other abnormalities. There is a focus of benign milk of calcium in the upper outer quadrant of the right breast. This has been previously evaluated with magnification imaging in June 2022. MM/MM tomosynthesis screening BI IMPRESSION: No mammographic evidence of malignancy. ASSESSMENT: BI-RADS BI-RADS 2 - Benign Findings RECOMMENDATION: Routine annual mammography screening. 1 year F/U This examination should not preclude the clinical evaluation of a suspicious palpable abnormality. This patient's information was entered into a reminder system with a target due date for their next mammogram.
--- NOTE | 2023-09-06 10:04 | CA_ITS ---
Transthoracic Echocardiogram Patient (Last, First, Middle): Chinyere Salas, Gender: Female Date of : 1975 Age: 48 Procedure Date: 09/06/2023 Procedure Type: Transthoracic Echocardiogram Location: OP Height: 162.56 cm Weight: 86.18 kg BSA: 1.91 m2 Heart Rate: bpm BP: 110 / 76 mmHg Recruiting Team Lead: TO Referring MD: Dave Rodriguez MD Symptoms: R94.31 - Abnormal electrocardiogram [ECG] [EKG] Study Quality: Adequate ECG Rhythm: Sinus Conclusions: - The left ventricular systolic function is normal. The calculated ejection fraction is 65% by biplane method. - No obvious valvular pathology seen on this study. Findings Left Ventricle Normal left ventricular cavity size. There is normal left ventricular wall thickness. The left ventricular systolic function is normal. The calculated ejection fraction is 65% by biplane method. There is no evidence of regional wall motion abnormalities. Evidence suggests grade I (mild) diastolic dysfunction. LV peak GLS -16.5%, suspect underestimation. Right Ventricle Normal right ventricular cavity size. There is low normal right ventricular systolic function. Atria Both atria are normal in size. Aortic Valve There is a normal trileaflet aortic valve. There is no aortic valve stenosis. There is no aortic valve regurgitation. Mitral Valve The mitral valve appears normal. There is no mitral valve regurgitation. There is no mitral valve stenosis. Pulmonic Valve There is trace pulmonic valve regurgitation. Tricuspid Valve There is trace tricuspid valve regurgitation. There is no evidence of pulmonary hypertension. Great Vessels The asc aorta and aortic arch are normal in size. Venous The inferior vena cava is normal in size and collapses greater than 50% with inspiration. Pericardium/Pleural There is no evidence of pericardial effusion. Prior Study Comparison No prior study available for comparison. Recommendations, Care & Conclusions No obvious valvular pathology seen on this study. Measurements 2D Linear Measurements IVSd: 1.03 0.6-0.9/0.6-1.0 cm LVIDd: 4.50 3.9-5.3/4.2-5.9 cm LVIDd Index: 2.36 2.4-3.2/2.2-3.1 cm/m2 LVIDs: 2.85 2.0-3.6 cm LVPWd: 0.99 0.7-1.1 cm LA Diam: 3.10 2.7-3.8/3.0-4.0 cm LAIDs Index: 1.62 1.5-2.3 cm/m2 LV Mass: 193.62 67-162/88-224 g LV Mass Index: 101.37 43-95/49-115 g/m2 LVOT Diam: 2.00 3.0+(-)1.3 cm 2D Systolic Function EF 4C: 68.50 >55% EF 2C: 60.00 >55% EF BiP: 65.20 >55% Mitral Valve MV Pk E: 0.48 MV PK A: 0.54 MV Decel Time: 190.00 E/A: 0.90 E'Lateral: 6.31 E'Medial: 4.35 E/E' Med: 11.00 E/E' Lat: 7.60 PHT: 56.00 MVA PHT: 3.93 Decel [place]: 2.53 Aortic Valve AoV Pk David: 1.25 AoV Mn David: 0.88 AoV VTI: 0.25 AoV Pk Grad: 6.00 Aov Mn Grad: 3.00 STEPHANIE Cont.VTI: 2.39 LVOT LVOT Pk David: 1.00 LVOT Mn David: 0.67 LVOT VTI: 0.19 LVOT Pk Grad: 4.00 LVOT Mn Grad: 2.00 LVOT Diam: 2.00 LVOT Area: 3.14 Diastolic Function MV Pk E: 0.48 MV Pk A: 0.54 E/A: 0.90 E'Medial: 4.35 E/E' Med: 11.00 E' Laterial: 6.31 E/E' Lat: 7.60 Right Ventricle TAPSE (mm): 16.50 TVS' David: 9.68 Tricuspid Valve TR Pk David: 1.78 TR Pk Grad: 13.00 RA Press: 3.00 RVSP: 16.00 Great Vessels Aorta Sinus of Valsalva: 3.58 2.0-3.5 cm Ao Asc: 3.40 2.1-3.4 cm Ao Arch: 3.60 Updated in Other Vendor System with Status of Final Urbano Lambert MD electronically signed on 09/07/2023 9:07:23 AM with status of Final
== END ==
LOC: HO.CARD 09:58
PROVIDERS: PCP Internal Medicine; Visit Provider Internal Medicine
DX: Z12.31 Encounter for screening mammogram for malignant neoplasm of breast (principal); R94.31 Abnormal electrocardiogram [ECG] [EKG]
CPT/HCPCS: 77063; 77067; 93306; 93356

== ENCOUNTER → 2023-09-06 10:04 | Outpatient (BNV) | payer BC, SELFPAY | PROVIDERS: PCP Internal Medicine; Visit Provider Internal Medicine | DX: R94.31 Abnormal electrocardiogram [ECG] [EKG] (principal) | CPT/HCPCS: 93306 ==

== ENCOUNTER → 2023-09-06 15:00 | Outpatient (BNV) | payer BC, SELFPAY | PROVIDERS: PCP Internal Medicine; Visit Provider Radiology Diagnostic Radiology | DX: Z12.31 Encounter for screening mammogram for malignant neoplasm of breast (principal) | CPT/HCPCS: 77063; 77067 ==

== ENCOUNTER 2023-10-03 12:33 | Outpatient (AMB) | payer BC, SELFPAY ==
[2023-10-03 12:34] VITALS: BP 118/74; PULSE 80; O2SAT 96; BMI 33.1
--- NOTE | 2023-10-03 12:34 | A.OFFPC_ITS ---
Vital Signs 10/03/23 12:34 Height 5 ft 4 in Weight 193 lb 2 oz BMI 33.1 BP 118/74 Blood Pressure Location Rt brachial Position Sitting Pulse 80 Pulse Source Pulse Oximeter Pulse Oximetry (%) 96 Oxygen Delivery Method Room Air Intake Visit Reasons: 4 week follow up Allergies penicillins Adverse Reaction (Mild, Uncoded 10/03/23 12:36) Rash Medication List - Last Reconciled 10/03/23 by Dave Rodriguez MD lactulose 20 grams (30 mL) PO BEDTIME 90 days phentermine 37.5 mg PO DAILY polyethylene glycol 3350 (Miralax) 17 grams PO DAILY 90 days topiramate (Topamax) 25 mg PO DAILY Tobacco use date assessed: 10/03/23 Dental Screening Dental Screen Date: 10/03/23 Did you have a dental visit in the last 12 months?: Yes Did you have a dental problem in the last 6 months where you did not have access to dental care?: No Was dental information given to patient?: Patient has dentist HPI 4 week follow up HPI Details Patient came in for medication refill She losing weight gradually, she was started on phentermine in June then we adjusted the dose and added Topamax She started with 211 lb and she weighs 193 now For the past 1 month she has lost 197-193 lb Patient is tolerating medication no side effects Lab order placed we will have it done next time she come in Medication refills sent Follow-up 4 weeks [facility] Family History (Updated 10/03/23 @ 12:37 by Yuliya Baca CMA) Father Mental health disorder Social History Housing: House Patient Tobacco Use Status: Never used Tobacco e-Cigarette/Vaping Use: Never Used service: No Current occupational status: employed Cognitive needs: No Hearing needs: No Vision needs: No Questionnaire Thrive Questionnaire Date Thrive assessed: 08/10/23 SANDRA-7 AMB Questionnaire SANDRA-7 Date SANDRA - 7 assessed: 08/10/23 Source: Developed by Drs. Alexandre Torres, Sydnee Bragg, Quirino Acharya and colleagues, with an educational hernando from [employer]. Review of Systems Const Denies chills and Denies fever(s) ENT Denies epistaxis and Denies nasal discharge Card Denies chest pain Resp Denies chest congestion, Denies cough and Denies hemoptysis GI Denies diarrhea and Denies nausea Skin/Breast Denies rash Neuro Reports no additional complaints Psych Reports no additional complaints Endo Reports no additional complaints Physical exam (Primary Care) Vital Signs: Last Vital Signs Pulse 80 10/03/23 12:34 BP 118/74 10/03/23 12:34 Pulse Ox 96 10/03/23 12:34 Oxygen Delivery Method Room Air 10/03/23 12:34 BMI result Body Mass Index 33.1 Tobacco/Smoking Status: Tobacco use Status Tobacco use date assessed 10/03/23 10/03/23 12:39 Patient Tobacco Use Status Never used Tobacco 10/03/23 12:37 e-Cigarette/Vaping Use Never Used 10/03/23 12:37 Thrive Assessment: Date of Thrive Assessment Date Thrive assessed 08/10/23 10/03/23 12:37 Const General: cooperative, comfortable and no acute distress Orientation/consciousness: patient oriented x3 HENMT Head: Yes normocephalic Eyes General: appearance normal, both eyes and all related structures Neck Neck: Yes supple Resp Effort & Inspection: normal respiratory effort, no cough and no stridor Cardio Rhythm: regular rhythm Heart sounds: S1 normal heart sound present and S2 normal heart sound present Skin General skin exam: turgor normal Neuro General: patient oriented x3, tone normal and moves all extremities Extrem Right lower extremity: no edema Left lower extremity: no edema Results Reviewed Results Reviewed: Selected Entries 06/06/23 11:42 07/11/23 13:14 08/10/23 11:41 Weight 214 lb 6 oz 203 lb 8 oz 198 lb 4 oz 09/05/23 12:39 10/03/23 12:34 Weight 197 lb 6 oz 193 lb 2 oz Assessment and Plan Assessment & Plan (1) Obesity due to excess calories: Code(s): E66.09 - Other obesity due to excess calories Qualifiers: Body mass index: BMI 36.0-36.9 Obesity classification: adult class 2 (BMI 35 - 39.9) Serious obesity comorbidity presence: without serious comorbidity Qualified Code(s): E66.09 - Other obesity due to excess calories; Z68.36 - Body mass index [BMI] 36.0-36.9, adult (2) LFT elevation: Code(s): R79.89 - Other specified abnormal findings of blood chemistry Plan Patient came in for medication refill She losing weight gradually, she was started on phentermine in June then we adjusted the dose and added Topamax She started with 211 lb and she weighs 193 now For the past 1 month she has lost 197-193 lb Patient is tolerating medication no side effects Lab order placed we will have it done next time she come in Medication refills sent Follow-up 4 weeks Orders: Orders Complete Blood Count Auto Diff Today E66.09 - Other obesity due to excess calories, R79.89 - Other specified abnormal findings of blood chemistry Comprehensive Met. Panel Today E66.09 - Other obesity due to excess calories, R79.89 - Other specified abnormal findings of blood chemistry Medications: Refilled phentermine must administer 2 hours after breakfast 37.5 mg PO DAILY 30 caps 0RF topiramate (Topamax) 25 mg PO DAILY 30 tabs 0RF Coding Level of Care Code Est Pt Level 3 (04214) Diagnoses Class 2 obesity due to excess calories without serious comorbidity with body mass index (BMI) of 36.0 to 36.9 in adult E66.09; Z68.36 Body mass index: BMI 36.0-36.9 Obesity classification: adult class 2 (BMI 35 - 39.9) Serious obesity comorbidity presence: without serious comorbidity LFT elevation R79.89
== END 2023-10-03 12:50 | disposition home or self-care (01) ==
PROVIDERS: PCP Internal Medicine; Visit Provider Internal Medicine
DX: E66.09 Other obesity due to excess calories (principal); Z68.36 Body mass index [BMI] 36.0-36.9, adult; R79.89 Other specified abnormal findings of blood chemistry
CPT/HCPCS: 99213

== ENCOUNTER 2024-06-11 09:04 | Outpatient (AMB) | payer BC, SELFPAY ==
--- NOTE | 2024-06-11 09:05 | A.OFFPC_ITS ---
Vital Signs 06/11/24 09:06 Height 5 ft 4 in Weight 203 lb 8 oz BMI 34.9 BP 118/72 Blood Pressure Location Rt brachial Position Sitting Pulse 84 Pulse Source Pulse Oximeter Pulse Oximetry (%) 98 Oxygen Delivery Method Room Air Intake Visit Reasons: Annual PE - see comments Allergies penicillins Adverse Reaction (Mild, Uncoded 10/03/23 12:36) Rash Medication List - Last Reconciled 06/11/24 by Dave Rodriguez MD No Known Home Meds Tobacco use date assessed: 06/11/24 Dental Screening Dental Screen Date: 06/11/24 Did you have a dental visit in the last 12 months?: Yes Did you have a dental problem in the last 6 months where you did not have access to dental care?: No Was dental information given to patient?: Patient has dentist HPI Annual PE - see comments HPI Details Chief Complaint Patient reports ongoing issues with constipation, bloating, and gastrointestinal discomfort. Health Maintenance - Mammogram up to date as of August. - OBGYN visit scheduled, awaiting availa bilharman. - Colonoscopy recommended but not yet co mpleted. - Discussed need for consultation with g astroenterology for constipation and bloating. - Recommending liver function tests due to pale stools and history of gastrointestinal issues. - Discussed potential insurance coverage for medications due to family history of diabetes and obesity. - No swelling of ankles and no significa nt joint issues noted during the physical exam. - Recommended increased hydration and di et modification for bowel movement regularity. Assessment and Plan 49-year-old female with a history of obe sity and arthritis presenting with gastrointestinal concerns primarily due to constipation and bloating exacerbated by current medication semaglutide injections. The patient has experienced side effects including heartburn has lost 14 lb in 2 months . The patient also noted a change in stool color and has a family history of diabetes. Previous mammograms are up to date, and OBGYN visits are awaiting scheduling. The physical exam revealed bloating likely due to gas accumulation. Laboratory evaluations and a gastroenterology consultation are warranted for a comprehensive evaluation. 1. Bloating Significant bloating is reported, likely due to gastrointestinal motility issues compounded by medication. A gastroenterology referral is initiated for further evaluation and management. 2. Constipation The patient has been experiencing chronic constipation, exacerbated by current medications. She is instructed to increase Senna to 3 tablets daily and to add Dulcolax and MiraLax as needed. A daily regimen should be maintained to prevent constipation, and the patient is advised to drink lukewarm water in the morning to stimulate bowel movements. A gastroenterology consultation is recommended for further evaluation and management. 3. Overweight/Obesity Despite the use of semaglutide (Ozempic), the patient reports insufficient weight loss and experiences heartburn. The insurance coverage for Ozempic will be sought, and a dose adjustment to 1 mg was discussed if warranted. The patient is encouraged to continue with lifestyle modifications including diet and exercise. 4. Heartburn The patient reports significant heartburn potentially related to medication. Dietary modifications and potential medication adjustments will be evaluated in the consultation. 5. Other fecal abnormalities R19.5 The patient reports pale stools, prompting the initiation of liver function testing and further gastroenterological evaluation to rule out any hepatic or biliary obstructive diseases. Patient Instructions - Increase Senna to 3 tablets daily, and continue Dulcolax and MiraLax as needed for constipation management. - Drink two glasses of lukewarm water ev pankaj morning to stimulate bowel movements. - Monitor and report any changes in stoo l color or consistency, and follow up with liver function testing as scheduled. - Schedule and attend a gastroenterology consultation without delay. - Continue weight management efforts inc luding dietary and physical activity modifications. - Keep mammogram and OBGYN appointments up to date. - Check with pharmacy regarding insuranc e coverage for Ozempic prior to filling the prescription. PFSH Family History Father Mental health disorder Social History Housing: House Patient Tobacco Use Status: Never used Tobacco e-Cigarette/Vaping Use: Never Used service: No Current occupational status: employed Cognitive needs: No Hearing needs: No Vision needs: No Questionnaire PHQ-9 Over the last 2 weeks, how often have you been bothered by any of the following problems? 1. Little interest or pleasure in doing things: several days 2. Feeling down, depressed, or hopeless: several days 3. Trouble falling or staying asleep, or sleeping too much: several days 4. Feeling tired or having little energy: several days 5. Poor appetite or overeating: not at all 6. Feeling bad about yourself - or that you are a failure or have let yourself or your family down: not at all 7. Trouble concentrating on things, such as reading the newspaper or watching television: not at all 8. Moving or speaking so slowly that other people could have noticed. Or the opposite - being so fidgety or restless that you have been moving around a lot more than usual: not at all 9. Thoughts that you would be better off or of hurting yourself in some way: not at all Total score: 4 Depression Screening Interpretation: Negative Depression Screening Done: Yes 67095 - PHQ-9 Billing: Yes Source: Developed by Drs. Alexandre Torres, Sydnee Bragg, Quirino Acharya and colleagues, with an educational hernando from [employer]. Thrive Questionnaire Date Thrive assessed: 06/11/24 I am a: Patient What is your living situation today?: I have a steady place to live Within the past 12 months, did the food you bought not last and you didn't have the money to get more?: Never true Within the past 12 months, did you worry whether your food would run out before you got money to buy more?: Never true Do you have trouble paying for medicines?: No Do you have trouble getting transportation to medical appointments?: No Do you have trouble paying your heating and electricity bill?: No Do you have trouble taking care of your child, family member or friend?: No Do you have trouble with day-to-day activities such as bathing, preparing meals, shopping, managing finances, etc.?: No Are you currently unemployed and looking for a job?: No Are you interested in more education?: No Please select the resources that you would like help with: None Currently or been in a relationship where the following occur: No concerns reported THRIVE Score: 0 AUDIT C Alcohol Use Questionnaire (AUDIT-C) 1. How often do you have a drink containing alcohol?: Monthly or less 2. How many drinks containing alcohol do you have on a typical day when you are drinking?: 1 or 2 3. How often do you have six or more drinks on one occasion?: Never Total Score: 1 Score Reviewed/Action Taken: Yes SANDRA-7 AMB Questionnaire SANDRA-7 Date SANDRA - 7 assessed: 06/11/24 Feeling nervous, anxious, or on edge: 1 = Several days Not being able to stop or control worryin = Several days Worrying too much about different things: 0 = Not at all Trouble relaxin = Not at all Being so restless that it is hard to sit still: 0 = Not at all Becoming easily annoyed or irritable: 0 = Not at all Feeling afraid as if something awful might happen: 0 = Not at all Total SANDRA-7 score (0-4 normal; 5-9 mild; 10-14 moderate; 15-21 severe): 2 Source: Developed by Drs. Alexandre Torres, Sydnee Bragg, Quirino Acharya and colleagues, with an educational hernando from [employer]. SANDRA-7 Assessment Billing SANDRA-7 Assessment Tool: SANDRA-7 Assessment 66849 Review of Systems Const Denies chills, Denies fever(s) and Denies headache(s) Eyes Denies blurry vision ENT Denies headache(s), Denies nasal discharge, Denies nasal obstruction, Denies odynophagia and Denies sinus pain Card Denies chest pain at rest and Denies chest pain with activity Resp Denies cough and Denies hemoptysis GI Denies diarrhea, Denies odynophagia, Denies vomiting and Denies hematemesis Reports as per HPI Musc Denies abnormal gait Skin/Breast Reports as per HPI Neuro Denies Neuro-related abnormal movements, Denies Abnormal speech present, Denies abnormal gait, Denies headache(s) and Denies Sensory deficit (Neuro) Psych Denies mood swings and Denies paranoia Endo Reports as per HPI Armani/Lymph Reports as per HPI Aller/Immun Reports as per HPI Physical exam (Primary Care) Vital Signs: Last Vital Signs Pulse 84 06/11/24 09:06 BP 118/72 06/11/24 09:06 Pulse Ox 98 06/11/24 09:06 Oxygen Delivery Method Room Air 06/11/24 09:06 BMI result Body Mass Index 34.9 Tobacco/Smoking Status: Tobacco use Status Tobacco use date assessed 06/11/24 06/11/24 09:09 Patient Tobacco Use Status Never used Tobacco 06/11/24 09:07 e-Cigarette/Vaping Use Never Used 06/11/24 09:07 PHQ-9: PHQ-9 Score PHQ-9: Total score 4 06/11/24 09:09 Depression Screening Interpretation: Negative Thrive Assessment: Date of Thrive Assessment Date Thrive assessed 06/11/24 06/11/24 09:09 Currently or been in a relationship where the following occur: No concerns reported Const General: cooperative, comfortable and no acute distress Orientation/consciousness: patient oriented x3 HENMT Head: Yes normocephalic and Yes atraumatic Eyes General: appearance normal, both eyes and all related structures Pupils: Equal, round and reactive pupils present EOM: EOMs intact bilaterally Neck Neck: Yes supple and No lymphadenopathy Thyroid: Thyroid normal Lymphatic: no lymphadenopathy noted Resp Effort & Inspection: normal respiratory effort and able to speak in complete sentences Auscultation: clear to auscultation bilaterally Cardio Heart sounds: S1 normal heart sound present and S2 normal heart sound present GI Palpation (GI): Soft to palpation and nontender Auscultation: normal bowel sounds General: Yes no CVA tenderness Back/Spine/Pelvis Back: no CVA tenderness Skin General skin exam: elasticity normal and turgor normal Neuro General: patient oriented x3 and gait normal Cranial nerves: Yes Equal, round and reactive pupils present Speech: No Abnormal speech present Sensory Exam: No Sensory deficit (Neuro) Coordination: tandem gait normal and Romberg test negative Extrem General: Yes normal exam except as noted and No edema Coding Level of Care Code Est Pt Level 4 (39226) Est Pt Prev Care 40-64y(69471) Diagnoses Encounter for general adult medical examination with abnormal findings Z00.01 Constipation by delayed colonic transit K59.01 Abdominal bloating R14.0 Primary osteoarthritis of both knees M17.0 Osteoarthritis type: primary Class 2 obesity due to excess calories without serious comorbidity with body mass index (BMI) of 36.0 to 36.9 in adult E66.09; Z68.36 Obesity classification: adult class 2 (BMI 35 - 39.9) Serious obesity comorbidity presence: without serious comorbidity Body mass index: BMI 36.0-36.9 Impaired fasting blood sugar R73.01 LFT elevation R79.89 Colon cancer screening Z12.11 Additional Codes SANDRA-7 Assessment Billing - SANDRA-7 Assessment Tool: SANDRA-7 Assessment 45301 ([id number]) PHQ-9 - 20854 - PHQ-9 Billing: Yes ([id number]) Assessment & Plan Assessment & Plan (1) Encounter for general adult medical examination with abnormal findings: Code(s): Z00.01 - Encounter for general adult medical examination with abnormal findings Category: Medical (2) Constipation by delayed colonic transit: Code(s): K59.01 - Slow transit constipation Category: Medical (3) Abdominal bloating: Code(s): R14.0 - Abdominal distension (gaseous) Category: Medical (4) Osteoarthritis of knees, bilateral: Code(s): M17.0 - Bilateral primary osteoarthritis of knee Category: Medical Qualifiers: Osteoarthritis type: primary Qualified Code(s): M17.0 - Bilateral primary osteoarthritis of knee (5) Obesity due to excess calories: Code(s): E66.09 - Other obesity due to excess calories Category: Medical Qualifiers: Obesity classification: adult class 2 (BMI 35 - 39.9) Serious obesity comorbidity presence: without serious comorbidity Body mass index: BMI 36.0-36 .9 Qualified Code(s): E66.09 - Other obesity due to excess calories; Z68.36 - Body mass index [BMI] 36.0-36.9, adult (6) Impaired fasting blood sugar: Code(s): R73.01 - Impaired fasting glucose Category: Medical (7) LFT elevation: Code(s): R79.89 - Other specified abnormal findings of blood chemistry Category: Medical (8) Colon cancer screening: Code(s): Z12.11 - Encounter for screening for malignant neoplasm of colon Category: Medical Plan Chief Complaint Patient reports ongoing issues with constipation, bloating, and gastrointestinal discomfort. Health Maintenance - Mammogram up to date as of August. - OBGYN visit scheduled, awaiting availability. - Colonoscopy recommended but not yet completed. - Discussed need for consultation with gastroenterology for constipation and bloating. - Recommending liver function tests due to pale stools and history of gastrointestinal issues. - Discussed potential insurance coverage for medications due to family history of diabetes and obesity. - No swelling of ankles and no significant joint issues noted during the physical exam. - Recommended increased hydration and diet modification for bowel movement regularity. Assessment and Plan 49-year-old female with a history of obesity and arthritis presenting with gastrointestinal concerns primarily due to constipation and bloating exacerbated by current medication semaglutide injections. The patient has experienced side effects including heartburn has lost 14 lb in 2 months . The patient also noted a change in stool color and has a family history of diabetes. Previous mammograms are up to date, and OBGYN visits are awaiting scheduling. The physical exam revealed bloating likely due to gas accumulation. Laboratory evaluations and a gastroenterology consultation are warranted for a comprehensive evaluation. 1. Bloating Significant bloating is reported, likely due to gastrointestinal motility issues compounded by medication. A gastroenterology referral is initiated for further evaluation and management. 2. Constipation The patient has been experiencing chronic constipation, exacerbated by current medications. She is instructed to increase Senna to 3 tablets daily and to add Dulcolax and MiraLax as needed. A daily regimen should be maintained to prevent constipation, and the patient is advised to drink lukewarm water in the morning to stimulate bowel movements. A gastroenterology consultation is recommended for further evaluation and management. 3. Overweight/Obesity Despite the use of semaglutide (Ozempic), the patient reports insufficient weight loss and experiences heartburn. The insurance coverage for Ozempic will be sought, and a dose adjustment to 1 mg was discussed if warranted. The patient is encouraged to continue with lifestyle modifications including diet and exercise. 4. Heartburn The patient reports significant heartburn potentially related to medication. Dietary modifications and potential medication adjustments will be evaluated in the consultation. 5. Other fecal abnormalities R19.5 The patient reports pale stools, prompting the initiation of liver function testing and further gastroenterological evaluation to rule out any hepatic or biliary obstructive diseases. Patient Instructions - Increase Senna to 3 tablets daily, and continue Dulcolax and MiraLax as needed for constipation management. - Drink two glasses of lukewarm water every morning to stimulate bowel move ments. - Monitor and report any changes in stool color or consistency, and follow up with liver function testing as scheduled. - Schedule and attend a gastroenterology consultation without delay. - Continue weight management efforts including dietary and physical activity modifications. - Keep mammogram and OBGYN appointments up to date. - Check with pharmacy regarding insurance coverage for Ozempic prior to filling the prescription. Orders: Orders Vitamin D 25-OH (D2 and D3) Today E66.09 - Other obesity due to excess calories, K59.01 - Slow transit constipation, R73.01 - Impaired fasting glucose, R79.89 - Other specified abnormal findings of blood chemistry, Z00.01 - Encounter for general adult medical examination with abnormal findings, Z68.36 - Body mass index [BMI] 36.0-36.9, adult Complete Blood Count Auto Diff Today E66.09 - Other obesity due to excess calories, K59.01 - Slow transit constipation, R73.01 - Impaired fasting glucose, R79.89 - Other specified abnormal findings of blood chemistry, Z00.01 - Encounter for general adult medical examination with abnormal findings, Z68.36 - Body mass index [BMI] 36.0-36.9, adult Comprehensive [place]. Panel Fast Today E66.09 - Other obesity due to excess calories, K59.01 - Slow transit constipation, R73.01 - Impaired fasting glucose, R79.89 - Other specified abnormal findings of blood chemistry, Z00.01 - Encounter for general adult medical examination with abnormal findings, Z68.36 - Body mass index [BMI] 36.0-36.9, adult Lipid Panel Today E66.09 - Other obesity due to excess calories, K59.01 - Slow transit constipation, R73.01 - Impaired fasting glucose, R79.89 - Other specified abnormal findings of blood chemistry, Z00.01 - Encounter for general adult medical examination with abnormal findings, Z68.36 - Body mass index [BMI] 36.0-36.9, adult TSH reflex Free T4 Today E66.09 - Other obesity due to excess calories, K59.01 - Slow transit constipation, R73.01 - Impaired fasting glucose, R79.89 - Other specified abnormal findings of blood chemistry, Z00.01 - Encounter for general adult medical examination with abnormal findings, Z68.36 - Body mass index [BMI] 36.0-36.9, adult Referrals Gastroenterology Referral R14.0 - Abdominal distension (gaseous), Z12.11 - Encounter for screening for malignant neoplasm of colon Medications: New semaglutide (weight loss) (Wegovy) administer weeks 1 through 4 of therapy 1 mg (2 mL) subcut QWEEK 30 days 10 mL 0RF E66.09 - Other obesity due to excess calories, M17.0 - Bilateral primary osteoarthritis of knee, R73.01 - Impaired fasting glucose, Z68.36 - Body mass index [BMI] 36.0-36.9, adult
[2024-06-11 09:06] VITALS: BP 118/72; PULSE 84; O2SAT 98; BMI 34.9
== END 2024-06-11 13:53 | disposition home or self-care (01) ==
PROVIDERS: PCP Internal Medicine; Visit Provider Internal Medicine
DX: Z00.00 Encounter for general adult medical examination without abnormal findings (principal); K59.01 Slow transit constipation; E66.09 Other obesity due to excess calories; Z68.36 Body mass index [BMI] 36.0-36.9, adult; R14.0 Abdominal distension (gaseous); M17.0 Bilateral primary osteoarthritis of knee; R73.01 Impaired fasting glucose; R79.89 Other specified abnormal findings of blood chemistry; Z12.11 Encounter for screening for malignant neoplasm of colon

== ENCOUNTER 2024-06-11 09:04 | Outpatient (REF) | payer BC, SELFPAY ==
[2024-06-11 13:08] LABS: MANUAL DIFF FLAG NO
[2024-06-11 13:16] LABS: Basophils Percent Auto 0.4 % (0-2); Eosinophils Absolute Auto 0.3 X10*3/uL (0.0-0.4); Eosinophils Percent Auto 2.8 % (0-4); Hematocrit 44.4 % (37.0-47.0); Hemoglobin 14.4 g/dl (12.0-16.0); Imm Gran Abs Auto 0.06 X10*3/uL (0.00-0.03); Imm Gran Pct Auto 0.7 % (0.0-0.4); Lymphocytes Percent Auto 22.6 % (20-40); Mean Corpuscular HGB Conc 32.4 g/dl (31.0-35.0); Mean Corpuscular Hemoglobin 30.3 pg (27.0-33.0); Mean Corpuscular Volume 93.5 fL (80.0-98.0); Mean Platelet Volume 9.9 fL (9.4-12.3); Monocytes Absolute Auto 0.5 X10*3/uL (0.1-1.2); Monocytes Percent Auto 5.6 % (2-11); Neutrophils Absolute Auto 6.1 x10*3/uL (2.0-8.3); Neutrophils Percent Auto 67.9 % (45-73); Platelet Count 294 X10*3/uL (160-400); Red Blood Count 4.75 X10*6/uL (4.20-5.50); Red Cell Distribution Width 12.7 % (11.0-16.0); White Blood Count 8.9 X10*3/uL (4.8-10.8)
[2024-06-11 13:35] LABS: Alanine Aminotransferase 37 U/L (0-31); Albumin Level 4.3 g/dL (3.5-5.0); Alkaline Phosphatase 81 U/L (39-117); Anion Gap 9 (12-20); Aspartate Amino Transferase 29 U/L (5-31); Bilirubin Total 0.5 mg/dL (0.0-1.0); Blood Urea Nitrogen 20 mg/dL (9-16); Calcium 10.5 mg/dL (8.4-10.2); Carbon Dioxide 28 mmol/L (22-29); Chloride 111 mmol/L (96-108); Cholesterol 170 mg/dL (<200); Estimated Glomerular Filt Rate > 60; Glucose Fasting 107 mg/dL (60-99); HDL Cholesterol 43 mg/dL (>40); LDL Cholesterol Calculated 102 mg/dL (<100); Potassium 4.2 mmol/L (3.3-5.1); Sodium 144 mmol/L (135-145); Total Protein 7.5 g/dL (6.5-8.0); Triglycerides 125 mg/dL (<150)
[2024-06-11 13:51] LABS: TSH reflex Free T4 0.92 uIU/mL (0.32-4.0)
[2024-06-16 15:54] LABS: Vitamin D 25-OH, D2 <4 ng/mL; Vitamin D 25-OH, D3 29 ng/mL; Vitamin D 25-OH, Total 29 ng/mL (30-100)
== END 2024-06-11 09:05 | disposition home or self-care (01) ==
LOC: HO.HMGCLDS 09:04
PROVIDERS: PCP Internal Medicine; Visit Provider Internal Medicine
DX: Z00.01 Encounter for general adult medical examination with abnormal findings (principal); K59.01 Slow transit constipation; R14.0 Abdominal distension (gaseous); M17.0 Bilateral primary osteoarthritis of knee; E66.09 Other obesity due to excess calories; Z68.36 Body mass index [BMI] 36.0-36.9, adult; R73.01 Impaired fasting glucose; R79.89 Other specified abnormal findings of blood chemistry
CPT/HCPCS: 36415; 80053; 80061; 82306; 84443; 85025; 96127

== ENCOUNTER 2024-06-19 08:58 | Outpatient (AMB) | payer BC, SELFPAY ==
--- NOTE | 2024-06-19 09:01 | MHC.PC.OV ---
Vital Signs 06/19/24 13:03 Height 5 ft 4 in Weight 203 lb 8 oz BMI 34.9 Intake Visit Reasons: Discuss Results Allergies penicillins Adverse Reaction (Mild, Uncoded 10/03/23 12:36) Rash Medication List - Last Reconciled 06/19/24 by Dave Rodriguez MD semaglutide (weight loss) (Wegovy) 1 mg (2 mL) subcut QWEEK 30 days Tobacco use date assessed: 06/19/24 Dental Screening Dental Screen Date: 06/19/24 Did you have a dental visit in the last 12 months?: Yes Did you have a dental problem in the last 6 months where you did not have access to dental care?: No Was dental information given to patient?: Patient has dentist HPI Discuss Results HPI Details Chief Complaint Patient desires evaluation of lab results and exploration of medication options for weight management. Assessment and Plan 49-year-old female with a history of prediabetes, identified elevated cholesterol, and recent initiation of weight management medication presenting for a follow-up on laboratory results and potential adjustment to medication regimen. The primary considerations include monitoring for effective blood glucose control and cardiovascular risk management. The recent plateau in weight loss with semaglutide and cost constraints of the current medication are impediments. Exploration of a potential switch to terzipatide is under consideration pending coverage investigation and patient research into the medication. 1. Prediabetes The patient is advised to maintain hydration to address mild dehydration, which may affect blood sugar levels. Current fasting glucose is 107 mg/dL, indicating continued prediabetic status. Monitor blood glucose levels and review dietary intake to manage carbohydrate consumption. Further monitoring and lifestyle modifications are recommended. 2. Weight Management And Medication Cost Patient currently takes semaglutide managing weight, expressing concerns about medication cost and efficacy plateau. Alternative medication terzipatide discussed, with consideration for potential insurance coverage. The patient will complete the current semaglutide supply and explore terzipatide further. Follow-up is conditional upon coverage confirmation and further patient education regarding medication. 3. Elevated Cholesterol The minor improvement in cholesterol from 110 to 102 mg/dL is noted. The LDL cholesterol level is within an acceptable range, and no pharmacological intervention is needed. The patient is encouraged to continue dietary and lifestyle modifications to improve lipid profile further. 4. Mild Dehydration Encourage increased fluid intake to correct dehydration, which might affect calcium and BUN levels. Re-evaluate hydration status and related lab values upon follow-up. 5. Vitamin D Deficiency The patient is recommended to continue vitamin D supplementation. Reinforce the importance of sun exposure and the possibility of adjusting dietary intake to improve vitamin D levels. Diagnostic results - Labs: - CBC: Normal - Electrolytes: Slightly elevated chloride - BUN: 20 mg/dL indicating dehydration - Kidney functions: Normal creatinine, filtration rate is 60 - Fasting glucose: 107 mg/dL (prediabetic status) - ALT: 37 U/L (within normal limits with mild fluctuation) - Cholesterol: Improved from 110 to 102 mg/dL - Vitamin D: Low levels Problem List - Prediabetes - Elevated Cholesterol - Vitamin D Deficiency - Mild Dehydration Health Maintenance - Monitor fasting glucose levels and dietary adjustments for prediabetes management. - Continue with vitamin D supplementation. - Encourage regular cardiovascular exercise for lipid management. Patient Instructions - Continue with your current vitamin D supplement regimen. - Increase fluid intake to prevent dehydration and support overall health. - Maintain a balanced diet and consult for dietary modifications focusing on managing carbohydrate intake. - Complete the existing semaglutide medication and continue monitoring weight trends. - Investigate terzipatide as an alternative medication upon completion of the current supply, ensuring insurance rebates/support is considered. - Schedule a follow-up visit to evaluate labs and medication response after semaglutide completion. PFSH Family History Father Mental health disorder Social History Housing: House Patient Tobacco Use Status: Never used Tobacco e-Cigarette/Vaping Use: Never Used service: No Current occupational status: employed Cognitive needs: No Hearing needs: No Vision needs: No Questionnaire Thrive Questionnaire Date Thrive assessed: 06/19/24 I am a: Patient What is your living situation today?: I have a steady place to live Within the past 12 months, did the food you bought not last and you didn't have the money to get more?: Never true Within the past 12 months, did you worry whether your food would run out before you got money to buy more?: Never true Do you have trouble paying for medicines?: No Do you have trouble getting transportation to medical appointments?: No Do you have trouble paying your heating and electricity bill?: No Do you have trouble taking care of your child, family member or friend?: No Do you have trouble with day-to-day activities such as bathing, preparing meals, shopping, managing finances, etc.?: No Are you currently unemployed and looking for a job?: No Are you interested in more education?: No Please select the resources that you would like help with: None Currently or been in a relationship where the following occur: No concerns reported THRIVE Score: 0 AUDIT C Alcohol Use Questionnaire (AUDIT-C) 1. How often do you have a drink containing alcohol?: Monthly or less 2. How many drinks containing alcohol do you have on a typical day when you are drinking?: 1 or 2 3. How often do you have six or more drinks on one occasion?: Never Total Score: 1 Score Reviewed/Action Taken: Yes SANDRA-7 AMB Questionnaire SANDRA-7 Date SANDRA - 7 assessed: 06/11/24 Source: Developed by Drs. Alexandre Torres, Sydnee Bragg, Quirino Acharya and colleagues, with an educational hernando from [employer]. Review of Systems Const Denies chills and Denies fever(s) ENT Denies epistaxis and Denies nasal discharge Card Denies chest pain Resp Denies chest congestion, Denies cough and Denies hemoptysis GI Denies diarrhea and Denies nausea Skin/Breast Denies rash Neuro Reports no additional complaints Psych Reports no additional complaints Endo Reports no additional complaints Physical exam (Primary Care) BMI result Body Mass Index 34.9 Tobacco/Smoking Status: Tobacco use Status Tobacco use date assessed 06/19/24 06/19/24 09:02 Patient Tobacco Use Status Never used Tobacco 06/19/24 09:02 e-Cigarette/Vaping Use Never Used 06/19/24 09:02 Thrive Assessment: Date of Thrive Assessment Date Thrive assessed 06/19/24 06/19/24 09:02 Currently or been in a relationship where the following occur: No concerns reported Telehealth Telehealth Telehealth Platform: [facility] Location of provider rendering services: practice address Location of patient: address on file Patient Identification confirmed using: Name, : Yes Telehealth method: voice only Patient verbally consented to treatment: Yes Patient verbally consented to billing insurance company: Yes Patient informed of any privacy concerns related to visit: Yes Coding Level of Care Code Tele Est Pt Level 4 (90932) Diagnoses Class 2 obesity due to excess calories without serious comorbidity with body mass index (BMI) of 36.0 to 36.9 in adult E66.09; Z68.36 Body mass index: BMI 36.0-36.9 Obesity classification: adult class 2 (BMI 35 - 39.9) Serious obesity comorbidity presence: without serious comorbidity Left lumbar radiculitis M54.16 Impaired fasting blood sugar R73.01 Palpitation R00.2 Serum calcium elevated E83.52 LFT elevation R79.89 Assessment & Plan Assessment & Plan (1) Obesity due to excess calories: Code(s): E66.09 - Other obesity due to excess calories Category: Medical Qualifiers: Body mass index: BMI 36.0-36.9 Obesity classification: adult class 2 (BMI 35 - 39.9) Serious obesity comorbidity presence: without serious comorbidity Qualified Code(s): E66.09 - Other obesity due to excess calories; Z68.36 - Body mass index [BMI] 36.0-36.9, adult (2) Left lumbar radiculitis: Code(s): M54.16 - Radiculopathy, lumbar region Category: Medical (3) Impaired fasting blood sugar: Code(s): R73.01 - Impaired fasting glucose Category: Medical (4) Palpitation: Code(s): R00.2 - Palpitations Category: Medical (5) Serum calcium elevated: Code(s): E83.52 - Hypercalcemia Category: Medical (6) LFT elevation: Code(s): R79.89 - Other specified abnormal findings of blood chemistry Category: Medical Plan Chief Complaint Patient desires evaluation of lab results and exploration of medication options for weight management. Assessment and Plan 49-year-old female with a history of prediabetes, identified elevated cholesterol, and recent initiation of weight management medication presenting for a follow-up on laboratory results and potential adjustment to medication regimen. The primary considerations include monitoring for effective blood glucose control and cardiovascular risk management. The recent plateau in weight loss with semaglutide and cost constraints of the current medication are impediments. Exploration of a potential switch to terzipatide is under consideration pending coverage investigation and patient research into the medication. 1. Prediabetes The patient is advised to maintain hydration to address mild dehydration, which may affect blood sugar levels. Current fasting glucose is 107 mg/dL, indicating continued prediabetic status. Monitor blood glucose levels and review dietary intake to manage carbohydrate consumption. Further monitoring and lifestyle modifications are recommended. 2. Weight Management And Medication Cost Patient currently takes semaglutide managing weight, expressing concerns about medication cost and efficacy plateau. Alternative medication terzipatide discussed, with consideration for potential insurance coverage. The patient will complete the current semaglutide supply and explore terzipatide further. Follow-up is conditional upon coverage confirmation and further patient education regarding medication. 3. Elevated Cholesterol The minor improvement in cholesterol from 110 to 102 mg/dL is noted. The LDL cholesterol level is within an acceptable range, and no pharmacological intervention is needed. The patient is encouraged to continue dietary and lifestyle modifications to improve lipid profile further. 4. Mild Dehydration Encourage increased fluid intake to correct dehydration, which might affect calcium and BUN levels. Re-evaluate hydration status and related lab values upon follow-up. 5. Vitamin D Deficiency The patient is recommended to continue vitamin D supplementation. Reinforce the importance of sun exposure and the possibility of adjusting dietary intake to improve vitamin D levels. Diagnostic results - Labs: - CBC: Normal - Electrolytes: Slightly elevated chloride - BUN: 20 mg/dL indicating dehydration - Kidney functions: Normal creatinine, filtration rate is 60 - Fasting glucose: 107 mg/dL (prediabetic status) - ALT: 37 U/L (within normal limits with mild fluctuation) - Cholesterol: Improved from 110 to 102 mg/dL - Vitamin D: Low levels Problem List - Prediabetes - Elevated Cholesterol - Vitamin D Deficiency - Mild Dehydration Health Maintenance - Monitor fasting glucose levels and dietary adjustments for prediabetes management. - Continue with vitamin D supplementation. - Encourage regular cardiovascular exercise for lipid management. Patient Instructions - Continue with your current vitamin D supplement regimen. - Increase fluid intake to prevent dehydration and support overall health. - Maintain a balanced diet and consult for dietary modifications focusing on managing carbohydrate intake. - Complete the existing semaglutide medication and continue monitoring weight trends. - Investigate terzipatide as an alternative medication upon completion of the current supply, ensuring insurance rebates/support is considered. - Schedule a follow-up visit to evaluate labs and medication response after semaglutide completion. 30 minutes spent in care of this patient was laid discussing lab values and medications Medications: New Zepbound (tirzepatide (weight loss)) for 4 weeks 2.5 mg (0.5 mL) subcut QWEEK 2 mL 0RF NS E66.09 - Other obesity due to excess calories, M54.16 - Radiculopathy, lumbar region, R00.2 - Palpitations, R73.01 - Impaired fasting glucose, Z68.36 - Body mass index [BMI] 36.0-36.9, adult On Hold semaglutide (weight loss) (Kelly) Hold Comment: switching to zepbound 1 mg (2 mL) subcut QWEEK 30 days 10 mL 0RF E66.09 - Other obesity due to excess calories, M17.0 - Bilateral primary osteoarthritis of knee, R73.01 - Impaired fasting glucose, Z68.36 - Body mass index [BMI] 36.0-36.9, adult
[2024-06-19 13:03] VITALS: BMI 34.9
== END 2024-06-19 10:00 | disposition home or self-care (01) ==
LOC: HO.HMCC 08:58
PROVIDERS: PCP Internal Medicine; Visit Provider Internal Medicine
DX: R73.01 Impaired fasting glucose (principal); E66.09 Other obesity due to excess calories; Z68.36 Body mass index [BMI] 36.0-36.9, adult; M54.16 Radiculopathy, lumbar region; R00.2 Palpitations; E83.52 Hypercalcemia

== ENCOUNTER 2024-09-11 13:04 | Outpatient (REF) | payer BC, SELFPAY | END 2024-09-11 13:05 | disposition home or self-care (01) | LOC: HO.MAMMO 13:04 | PROVIDERS: PCP Internal Medicine; Visit Provider Internal Medicine | DX: Z12.31 Encounter for screening mammogram for malignant neoplasm of breast (principal) | CPT/HCPCS: 77063; 77067 ==

== ENCOUNTER → 2024-09-11 13:15 | Outpatient (BNV) | payer BC, SELFPAY | PROVIDERS: PCP Internal Medicine; Visit Provider Internal Medicine | DX: Z12.31 Encounter for screening mammogram for malignant neoplasm of breast (principal) | CPT/HCPCS: 77063; 77067 ==

== ENCOUNTER 2024-09-30 12:18 | Outpatient (AMB) | payer BC, SELFPAY ==
--- NOTE | 2024-09-30 12:20 | MHC.PC.OV ---
Vital Signs 09/30/24 12:23 Height 5 ft 4 in Weight 192 lb 4 oz BMI 33.0 BP 112/78 Blood Pressure Location Rt brachial Position Sitting Respiration 18 Pulse 75 Pulse Source Pulse Oximeter Temp 98.2 F Temp Source Oral Pulse Oximetry (%) 95 Oxygen Delivery Method Room Air Intake Visit Reasons: Followup weight loss Allergies penicillins Adverse Reaction (Mild, Uncoded 10/03/23 12:36) Rash Medication List - Last Reconciled 09/30/24 by Dave Rodriguez MD tirzepatide (weight loss) 5 mg (0.5 mL) subcut QWEEK 90 days Tobacco use date assessed: 09/30/24 Dental Screening Dental Screen Date: 09/30/24 Did you have a dental visit in the last 12 months?: Yes Did you have a dental problem in the last 6 months where you did not have access to dental care?: No Was dental information given to patient?: Patient has dentist HPI Followup weight loss HPI Details Follow-up weight loss medication Patient is taking Zepbound 5 mg started early this month dose was increased to 5 from 2.5 She was able to lose few lb, tolerating medication without any side effects Dose increased to 7.5 mg Patient will return for follow-up in 3 months We will be repeating labs today as well Patient is prediabetic Her calcium was slightly elevated last time No other complaints today PFSH Family History Father Mental health disorder Social History Housing: House Patient Tobacco Use Status: Never used Tobacco e-Cigarette/Vaping Use: Never Used service: No Current occupational status: employed Cognitive needs: No Hearing needs: No Vision needs: No Questionnaire PHQ-9 Over the last 2 weeks, how often have you been bothered by any of the following problems? 1. Little interest or pleasure in doing things: not at all 2. Feeling down, depressed, or hopeless: not at all 3. Trouble falling or staying asleep, or sleeping too much: not at all 4. Feeling tired or having little energy: not at all 5. Poor appetite or overeating: not at all 6. Feeling bad about yourself - or that you are a failure or have let yourself or your family down: not at all 7. Trouble concentrating on things, such as reading the newspaper or watching television: not at all 8. Moving or speaking so slowly that other people could have noticed. Or the opposite - being so fidgety or restless that you have been moving around a lot more than usual: not at all 9. Thoughts that you would be better off or of hurting yourself in some way: not at all Total score: 0 Depression Screening Interpretation: Negative Depression Screening Done: Yes 96565 - PHQ-9 Billing: Yes Source: Developed by Drs. Alexandre Torres, Sydnee Bragg, Quirino Acharya and colleagues, with an educational hernando from [employer]. Thrive Questionnaire Date Thrive assessed: 09/30/24 I am a: Patient What is your living situation today?: I have a steady place to live Within the past 12 months, did the food you bought not last and you didn't have the money to get more?: Never true Within the past 12 months, did you worry whether your food would run out before you got money to buy more?: Never true Do you have trouble paying for medicines?: No Do you have trouble getting transportation to medical appointments?: No Do you have trouble paying your heating and electricity bill?: No Do you have trouble taking care of your child, family member or friend?: No Do you have trouble with day-to-day activities such as bathing, preparing meals, shopping, managing finances, etc.?: No Are you currently unemployed and looking for a job?: No Are you interested in more education?: No Please select the resources that you would like help with: None Currently or been in a relationship where the following occur: No concerns reported THRIVE Score: 0 AUDIT C Alcohol Use Questionnaire (AUDIT-C) 1. How often do you have a drink containing alcohol?: Monthly or less 2. How many drinks containing alcohol do you have on a typical day when you are drinking?: 1 or 2 3. How often do you have six or more drinks on one occasion?: Never Total Score: 1 Score Reviewed/Action Taken: Yes SANDRA-7 AMB Questionnaire SANDRA-7 Date SANDRA - 7 assessed: 09/30/24 Feeling nervous, anxious, or on edge: 0 = Not at all Not being able to stop or control worryin = Not at all Worrying too much about different things: 0 = Not at all Trouble relaxin = Not at all Being so restless that it is hard to sit still: 0 = Not at all Becoming easily annoyed or irritable: 0 = Not at all Feeling afraid as if something awful might happen: 0 = Not at all Total SANDRA-7 score (0-4 normal; 5-9 mild; 10-14 moderate; 15-21 severe): 0 Source: Developed by Drs. Alexandre Torres, Sydnee Bragg, Quirino Acharya and colleagues, with an educational hernando from [employer]. SANDRA-7 Assessment Billing SANDRA-7 Assessment Tool: SANDRA-7 Assessment 31836 Physical exam (Primary Care) Vital Signs: Last Vital Signs Temp 98.2 F 09/30/24 12:23 Pulse 75 09/30/24 12:23 Resp 18 09/30/24 12:23 BP 112/78 09/30/24 12:23 Pulse Ox 95 09/30/24 12:23 Oxygen Delivery Method Room Air 09/30/24 12:23 BMI result Body Mass Index 33.0 Tobacco/Smoking Status: Tobacco use Status Tobacco use date assessed 09/30/24 09/30/24 12:24 Patient Tobacco Use Status Never used Tobacco 09/30/24 12:21 e-Cigarette/Vaping Use Never Used 09/30/24 12:21 PHQ-9: PHQ-9 Score PHQ-9: Total score 0 09/30/24 12:24 Depression Screening Interpretation: Negative Thrive Assessment: Date of Thrive Assessment Date Thrive assessed 09/30/24 09/30/24 12:21 Currently or been in a relationship where the following occur: No concerns reported Coding Level of Care Code Est Pt Level 3 (68039) Diagnoses Class 2 obesity due to excess calories without serious comorbidity with body mass index (BMI) of 36.0 to 36.9 in adult E66.09; Z68.36 Obesity classification: adult class 2 (BMI 35 - 39.9) Serious obesity comorbidity presence: without serious comorbidity Body mass index: BMI 36.0-36.9 Impaired fasting blood sugar R73.01 Vitamin D deficiency E55.9 LFT elevation R79.89 Serum calcium elevated E83.52 Additional Codes SANDRA-7 Assessment Billing - SANDRA-7 Assessment Tool: SANDRA-7 Assessment 25271 ([id number]) PHQ-9 - 93994 - PHQ-9 Billing: Yes ([id number]) Assessment & Plan Assessment & Plan (1) Obesity due to excess calories: Code(s): E66.09 - Other obesity due to excess calories Category: Medical Qualifiers: Obesity classification: adult class 2 (BMI 35 - 39.9) Serious obesity comorbidity presence: without serious comorbidity Body mass index: BMI 36.0-36.9 Qualified Code(s): E66.09 - Other obesity due to excess calories; Z68.36 - Body mass index [BMI] 36.0-36.9, adult (2) Impaired fasting blood sugar: Code(s): R73.01 - Impaired fasting glucose Category: Medical (3) Vitamin D deficiency: Code(s): E55.9 - Vitamin D deficiency, unspecified Category: Medical (4) LFT elevation: Code(s): R79.89 - Other specified abnormal findings of blood chemistry Category: Medical (5) Serum calcium elevated: Code(s): E83.52 - Hypercalcemia Category: Medical Plan Follow-up weight loss medication Patient is taking Zepbound 5 mg started early this month dose was increased to 5 from 2.5 She was able to lose few lb, tolerating medication without any side effects Dose increased to 7.5 mg Patient will return for follow-up in 3 months We will be repeating labs today as well Patient is prediabetic Her calcium was slightly elevated last time No other complaints today Orders: Orders Amylase Today E55.9 - Vitamin D deficiency, unspecified, E66.09 - Other obesity due to excess calories, E83.52 - Hypercalcemia, R73.01 - Impaired fasting glucose, R79.89 - Other specified abnormal findings of blood chemistry, Z68.36 - Body mass index [BMI] 36.0-36.9, adult Hemoglobin A1c Today E55.9 - Vitamin D deficiency, unspecified, E66.09 - Other obesity due to excess calories, E83.52 - Hypercalcemia, R73.01 - Impaired fasting glucose, R79.89 - Other specified abnormal findings of blood chemistry, Z68.36 - Body mass index [BMI] 36.0-36.9, adult Comprehensive Met. Panel Today E55.9 - Vitamin D deficiency, unspecified, E66.09 - Other obesity due to excess calories, E83.52 - Hypercalcemia, R73.01 - Impaired fasting glucose, R79.89 - Other specified abnormal findings of blood chemistry, Z68.36 - Body mass index [BMI] 36.0-36.9, adult Complete Blood Count Auto Diff Today E55.9 - Vitamin D deficiency, unspecified, E66.09 - Other obesity due to excess calories, E83.52 - Hypercalcemia, R73.01 - Impaired fasting glucose, R79.89 - Other specified abnormal findings of blood chemistry, Z68.36 - Body mass index [BMI] 36.0-36.9, adult Lipase Today E55.9 - Vitamin D deficiency, unspecified, E66.09 - Other obesity due to excess calories, E83.52 - Hypercalcemia, R73.01 - Impaired fasting glucose, R79.89 - Other specified abnormal findings of blood chemistry, Z68.36 - Body mass index [BMI] 36.0-36.9, adult TSH reflex Free T4 Today E55.9 - Vitamin D deficiency, unspecified, E66.09 - Other obesity due to excess calories, E83.52 - Hypercalcemia, R73.01 - Impaired fasting glucose, R79.89 - Other specified abnormal findings of blood chemistry, Z68.36 - Body mass index [BMI] 36.0-36.9, adult Medications: Changed From tirzepatide (weight loss) for 4 weeks 5 mg (0.5 mL) subcut QWEEK 90 days 6.5 mL 0RF E66.09 - Other obesity due to excess calories, M54.16 - Radiculopathy, lumbar region, R00.2 - Palpitations, R73.01 - Impaired fasting glucose, Z68.36 - Body mass index [BMI] 36.0-36.9, adult To tirzepatide (weight loss) for 4 weeks 7.5 mg (0.5 mL) subcut QWEEK 30 days 2.5 mL 1RF E66.09 - Other obesity due to excess calories, M54.16 - Radiculopathy, lumbar region, R00.2 - Palpitations, R73.01 - Impaired fasting glucose, Z68.36 - Body mass index [BMI] 36.0-36.9, adult
[2024-09-30 12:23] VITALS: BP 112/78; PULSE 75; RESP 18; TEMP 36.8; O2SAT 95; BMI 33.0
== END 2024-09-30 12:41 | disposition home or self-care (01) ==
LOC: HO.HMCC 12:18
PROVIDERS: PCP Internal Medicine; Visit Provider Internal Medicine
DX: E66.09 Other obesity due to excess calories (principal); Z68.36 Body mass index [BMI] 36.0-36.9, adult; R73.01 Impaired fasting glucose; E55.9 Vitamin D deficiency, unspecified; R79.89 Other specified abnormal findings of blood chemistry; E83.52 Hypercalcemia

== ENCOUNTER 2024-09-30 12:18 | Outpatient (REF) | payer BC, SELFPAY ==
[2024-09-30 16:16] LABS: MANUAL DIFF FLAG NO
[2024-09-30 16:30] LABS: Basophils Percent Auto 0.4 % (0-2); Eosinophils Absolute Auto 0.2 X10*3/uL (0.0-0.4); Eosinophils Percent Auto 2.5 % (0-4); Hematocrit 45.7 % (37.0-47.0); Hemoglobin 15.2 g/dl (12.0-16.0); Imm Gran Abs Auto 0.02 X10*3/uL (0.00-0.03); Imm Gran Pct Auto 0.3 % (0.0-0.4); Lymphocytes Percent Auto 26.3 % (20-40); Mean Corpuscular HGB Conc 33.3 g/dl (31.0-35.0); Mean Corpuscular Hemoglobin 30.2 pg (27.0-33.0); Mean Corpuscular Volume 90.7 fL (80.0-98.0); Mean Platelet Volume 10.2 fL (9.4-12.3); Monocytes Absolute Auto 0.4 X10*3/uL (0.1-1.2); Monocytes Percent Auto 4.7 % (2-11); Neutrophils Absolute Auto 4.9 x10*3/uL (2.0-8.3); Neutrophils Percent Auto 65.8 % (45-73); Platelet Count 287 X10*3/uL (160-400); Red Blood Count 5.04 X10*6/uL (4.20-5.50); Red Cell Distribution Width 12.6 % (11.0-16.0); White Blood Count 7.5 X10*3/uL (4.8-10.8)
[2024-09-30 16:45] LABS: Estimated Average Glucose 100 mg/dL; Hemoglobin A1C 126.9865 umol/L; Hemoglobin A1c % 5.1 % (<6.0)
[2024-09-30 17:03] LABS: Alanine Aminotransferase 22 U/L (0-31); Albumin Level 4.4 g/dL (3.5-5.0); Alkaline Phosphatase 85 U/L (39-117); Amylase 51 U/L (28-100); Anion Gap 10 (12-20); Aspartate Amino Transferase 21 U/L (5-31); Bilirubin Total 0.7 mg/dL (0.0-1.0); Blood Urea Nitrogen 21 mg/dL (9-16); Calcium 10.4 mg/dL (8.4-10.2); Carbon Dioxide 24 mmol/L (22-29); Chloride 110 mmol/L (96-108); Estimated Glomerular Filt Rate > 60; Glucose Random 86 mg/dL (60-115); Lipase 26 U/L (8-78); Potassium 4.2 mmol/L (3.3-5.1); Sodium 140 mmol/L (135-145); Total Protein 7.6 g/dL (6.5-8.0)
[2024-09-30 17:10] LABS: TSH reflex Free T4 0.74 uIU/mL (0.32-4.0)
== END 2024-09-30 12:19 | disposition home or self-care (01) ==
LOC: HO.HMGCLDS 12:18
PROVIDERS: PCP Internal Medicine; Visit Provider Internal Medicine
DX: E66.09 Other obesity due to excess calories (principal); Z68.36 Body mass index [BMI] 36.0-36.9, adult; R73.01 Impaired fasting glucose; E55.9 Vitamin D deficiency, unspecified; R79.89 Other specified abnormal findings of blood chemistry; E83.52 Hypercalcemia
CPT/HCPCS: 36415; 80053; 82150; 83036; 83690; 84443; 85025; 96127

== ENCOUNTER 2025-01-06 09:16 | Outpatient (AMB) | payer BC, SELFPAY ==
[2025-01-06 09:20] VITALS: BP 110/66; PULSE 76; TEMP 36.5; O2SAT 97; BMI 30.9
--- NOTE | 2025-01-06 09:20 | MHC.PC.OV ---
Vital Signs 01/06/25 09:20 Height 5 ft 4 in Weight 180 lb 4 oz BMI 30.9 BP 110/66 Blood Pressure Location Rt brachial Position Sitting Pulse 76 Pulse Source Pulse Oximeter Temp 97.7 F Temp Source Oral Pulse Oximetry (%) 97 Oxygen Delivery Method Room Air Intake Visit Reasons: 3m follow up, resched [employer] Required: No Is last menstrual period known: No Post menopausal: No Patient : No Allergies Penicillins Allergy (Mild, Verified 01/06/25 09:29) rash Medication List - Last Reconciled 01/06/25 by Dave Rodriguez MD tirzepatide (weight loss) 10 mg (0.5 mL) subcut QWEEK 30 days Tobacco use date assessed: 01/06/25 Dental Screening Dental Screen Date: 09/30/24 Did you have a dental visit in the last 12 months?: Yes Did you have a dental problem in the last 6 months where you did not have access to dental care?: No Was dental information given to patient?: Patient has dentist HPI 3m follow up, resched HPI Details Patient is a 49-year-old female came in today for her regular follow-up appointment Patient is taking Zepbound 10 mg She was able to lose more weight However insurance has stopped covering the script for Zepbound They would like her to try Wegovy, patient had severe constipation with Wegovy in the past She will give me a call in 3 weeks and we will retry it again Patient will return for follow-up in 3 months We will be repeating labs before next visit Patient is prediabetic PFSH Family History Father Mental health disorder Social History Housing: House Patient Tobacco Use Status: Never used Tobacco e-Cigarette/Vaping Use: Never Used service: No Current occupational status: employed Cognitive needs: No Hearing needs: No Vision needs: No Questionnaire PHQ-9 Over the last 2 weeks, how often have you been bothered by any of the following problems? 1. Little interest or pleasure in doing things: not at all 2. Feeling down, depressed, or hopeless: not at all 3. Trouble falling or staying asleep, or sleeping too much: not at all 4. Feeling tired or having little energy: not at all 5. Poor appetite or overeating: not at all 6. Feeling bad about yourself - or that you are a failure or have let yourself or your family down: not at all 7. Trouble concentrating on things, such as reading the newspaper or watching television: not at all 8. Moving or speaking so slowly that other people could have noticed. Or the opposite - being so fidgety or restless that you have been moving around a lot more than usual: not at all 9. Thoughts that you would be better off or of hurting yourself in some way: not at all Total score: 0 Depression Screening Interpretation: Negative Depression Screening Done: Yes 79074 - PHQ-9 Billing: Yes Source: Developed by Drs. Alexandre Torres, Sydnee Bragg, Quirino Acharya and colleagues, with an educational hernando from [employer]. Thrive Questionnaire Date Thrive assessed: 01/06/25 I am a: Patient What is your living situation today?: I have a steady place to live Within the past 12 months, did the food you bought not last and you didn't have the money to get more?: Never true Within the past 12 months, did you worry whether your food would run out before you got money to buy more?: Never true Do you have trouble paying for medicines?: No Do you have trouble getting transportation to medical appointments?: No Do you have trouble paying your heating and electricity bill?: No Do you have trouble taking care of your child, family member or friend?: No Do you have trouble with day-to-day activities such as bathing, preparing meals, shopping, managing finances, etc.?: No Are you currently unemployed and looking for a job?: No Are you interested in more education?: No Please select the resources that you would like help with: None Currently or been in a relationship where the following occur: No concerns reported THRIVE Score: 0 AUDIT C Alcohol Use Questionnaire (AUDIT-C) 1. How often do you have a drink containing alcohol?: Monthly or less 2. How many drinks containing alcohol do you have on a typical day when you are drinking?: 1 or 2 3. How often do you have six or more drinks on one occasion?: Never Total Score: 1 Score Reviewed/Action Taken: Yes SANDRA-7 AMB Questionnaire SANDRA-7 Date SANDRA - 7 assessed: 09/30/24 Source: Developed by Drs. Alexandre Torres, Sydnee Bragg, Quirino Acharya and colleagues, with an educational hernando from [employer]. Review of Systems Const Denies chills and Denies fever(s) ENT Denies epistaxis and Denies nasal discharge Card Denies chest pain Resp Denies chest congestion, Denies cough and Denies hemoptysis GI Denies diarrhea and Denies nausea Skin/Breast Denies rash Neuro Reports no additional complaints Psych Reports no additional complaints Endo Reports no additional complaints Physical exam (Primary Care) Vital Signs: Last Vital Signs Temp 97.7 F 01/06/25 09:20 Pulse 76 01/06/25 09:20 BP 110/66 01/06/25 09:20 Pulse Ox 97 01/06/25 09:20 Oxygen Delivery Method Room Air 01/06/25 09:20 BMI result Body Mass Index 30.9 Tobacco/Smoking Status: Tobacco use Status Tobacco use date assessed 01/06/25 01/06/25 09:31 Patient Tobacco Use Status Never used Tobacco 01/06/25 09:22 e-Cigarette/Vaping Use Never Used 01/06/25 09:22 PHQ-9: PHQ-9 Score PHQ-9: Total score 0 01/06/25 09:43 Depression Screening Interpretation: Negative Thrive Assessment: Date of Thrive Assessment Date Thrive assessed 01/06/25 01/06/25 09:22 Currently or been in a relationship where the following occur: No concerns reported Const General: cooperative, comfortable and no acute distress Orientation/consciousness: patient oriented x3 HENMT Head: Yes normocephalic Eyes General: appearance normal, both eyes and all related structures Neck Neck: Yes supple Resp Effort & Inspection: normal respiratory effort, no cough and no stridor Cardio Rhythm: regular rhythm Heart sounds: S1 normal heart sound present and S2 normal heart sound present Skin General skin exam: turgor normal Neuro General: patient oriented x3, tone normal and moves all extremities Extrem Right lower extremity: no edema Left lower extremity: no edema Coding Level of Care Code Est Pt Level 3 (42414) Diagnoses Class 2 obesity due to excess calories without serious comorbidity with body mass index (BMI) of 36.0 to 36.9 in adult E66.09; Z68.36 Obesity classification: adult class 2 (BMI 35 - 39.9) Serious obesity comorbidity presence: without serious comorbidity Body mass index: BMI 36.0-36.9 Impaired fasting blood sugar R73.01 Additional Codes PHQ-9 - 85515 - PHQ-9 Billing: Yes ([id number]) Assessment & Plan Assessment & Plan (1) Obesity due to excess calories: Code(s): E66.09 - Other obesity due to excess calories Category: Medical Qualifiers: Obesity classification: adult class 2 (BMI 35 - 39.9) Serious obesity comorbidity presence: without serious comorbidity Body mass index: BMI 36.0-36.9 Qualified Code(s): E66.09 - Other obesity due to excess calories; Z68.36 - Body mass index [BMI] 36.0-36.9, adult (2) Impaired fasting blood sugar: Code(s): R73.01 - Impaired fasting glucose Category: Medical Plan Patient is a 49-year-old female came in today for her regular follow-up appointment Patient is taking Zepbound 10 mg She was able to lose more weight However insurance has stopped covering the script for Zepbound They would like her to try Wegovy, patient had severe constipation with Wegovy in the past She will give me a call in 3 weeks and we will retry it again Patient will return for follow-up in 3 months We will be repeating labs before next visit Patient is prediabetic Orders: Orders Complete Blood Count Auto Diff Today E66.09 - Other obesity due to excess calories, R73.01 - Impaired fasting glucose, Z68.36 - Body mass index [BMI] 36.0-36.9, adult Comprehensive Met. Panel Today E66.09 - Other obesity due to excess calories, R73.01 - Impaired fasting glucose, Z68.36 - Body mass index [BMI] 36.0-36.9, adult Lipase Today E66.09 - Other obesity due to excess calories, R73.01 - Impaired fasting glucose, Z68.36 - Body mass index [BMI] 36.0-36.9, adult TSH reflex Free T4 Today E66.09 - Other obesity due to excess calories, R73.01 - Impaired fasting glucose, Z68.36 - Body mass index [BMI] 36.0-36.9, adult Amylase Today E66.09 - Other obesity due to excess calories, R73.01 - Impaired fasting glucose, Z68.36 - Body mass index [BMI] 36.0-36.9, adult LDL Cholesterol Direct Today E66.09 - Other obesity due to excess calories, R73.01 - Impaired fasting glucose, Z68.36 - Body mass index [BMI] 36.0-36.9, adult
--- OUTSIDE RECORDS SUMMARY | 2025-01-06 09:50 | XMS_ITS | Patient Health Record ---
Author Organization [facility] Address [address] [place] [address] Care Team Providers Care Machine Assistant Name Role Phone Michael SUTTON, Asma Primary Care Provider Alexandre Mullins Unavailable [phone] Reason For Referral No Information Plan Of Treatment Next Appt Details Provider Name:Alexandre Monreal , 01/20/2025 09:50:00 AM, [address], [address], [place], [address], Insurance Providers Payer Name Payer Address Payer Phone Subscriber Number Group Number Insured Name Patient Relationship to Insured Coverage Start Date Coverage End Date [facility] [address] [place] [address] [id number] BILL VARELA Self - patient is the insured
== END 2025-01-06 09:44 | disposition home or self-care (01) ==
LOC: HO.HMCC 09:17
PROVIDERS: PCP Internal Medicine; Visit Provider Internal Medicine
DX: E66.09 Other obesity due to excess calories (principal); Z68.36 Body mass index [BMI] 36.0-36.9, adult; R73.01 Impaired fasting glucose

== ENCOUNTER → 2025-01-06 09:16 | Outpatient (BNVA) | payer BC, SELFPAY | PROVIDERS: PCP Internal Medicine; Visit Provider Internal Medicine | DX: E66.812 Obesity, class 2 (principal); E66.09 Other obesity due to excess calories; R73.03 Prediabetes; Z68.30 Body mass index [BMI] 30.0-30.9, adult | CPT/HCPCS: 96127 ==

== ENCOUNTER 2025-03-12 06:51 | Outpatient (AMB) | payer BC, SELFPAY ==
--- OUTSIDE RECORDS SUMMARY | 2024-09-30 10:20 | XMS_ITS ---
Author Organization [facility] Address [address] [place] [phone] Care Team Providers Care Machine Brusher Name Role Phone Michael SUTTON, Dave Primary Care Provider Alexandre Mullins [phone] REASON FOR VISIT Patient presents today for a COLON SCREENING, ABDOMINAL DISTENSION Encounters Encounter Location Date Provider Diagnosis [facility] [address] [facility] [address] [place] [phone] 09/30/2024 Alexandre Monreal Plan Of Treatment Next Appt Details Provider Name:Alexandre Monreal , 05/04/2025 10:30:00 AM, [address] [place] [address] , [place], [place], [phone], Progress Notes * CATHERINE VARELAOB:1975 (49 yo F)Acc No.[id number]:09/30/2024 Progress Notes Patient: BILL PERES Provider: Serena Monreal MD :1975 A ge:49 Y S ex:Female Date:09/30/2024 Address: [address] [id number] Pcp:Dave Rodriguez MD Subjective: * Chief Complaints: [...] 09/30/2024 Generated for Jesus bishop/Leti/Bam on: 0 03/12/2025 06:56 AM EDT
--- OUTSIDE RECORDS SUMMARY | 2025-03-12 06:56 | XMS_ITS | Patient Health Record ---
Author Organization [facility] Address [address] [place] [address] Care Team Providers Care Medical And Health Services Manager Name Role Phone Michael SUTTON, [facility] Provider Alexandre Mullins [phone] Allergies Allergen (clinical drug ingredient) Drug/Non Drug Allergy documented on EMR Reaction Allergy Type Onset Date Status Penicillin Unknown Drug Allergy Active Reason For Referral No Information Medications Medication SIG (Take, Route, Fr equency, Duration) Notes Start Date End Date Status Zepbound 10 MG/0.5ML 0.5 mL Subcutaneous for 30 day(s) 01/20/2025 Active Immunizations Vaccine Route Administration Date Status Comme nts Influenza Unknown 01/20/2025 Refused Social History Tobacco Use: Social History Observation Description Date Details (start date - stop date) Never Smoker NA - NA Tobacco Control (Standard) Question Answer Notes Tobacco use: Nonsmoker AUDIT-C (Standard) Question Answer Notes Did you have a drink contain ing alcohol in the past year? Yes How often did you have a dri nk containing alcohol in the past year? Monthly or less (1 point) How many drinks did you have on a typical day when you were drinking in the past year? 1 or 2 drinks (0 point) How often did you have six o r more drinks on one occasion in the past year? Never (0 point) Points 1 Interpretation Negative Section Notes: Nonsmoker; no sig alcohol Problems Problem Type SNOMED Code ICD Code Onset Dates Problem Status W/U Status Risk Notes Problem Colon cancer screening (727766724) Colon cancer screening (Z12.11) Active confirmed Problem Irritable bowel syndrome characterized by constipation (716207710) Irritable bowel syndrome with constipation (K58.9) Active confirmed Problem Gastroesophageal reflux disease (414529183) GERD (gastroesophage al reflux disease) (K21.9) Active confirmed Vital Signs Temperature 97.5 degrees Fahrenheit 01/20/2025 Blood pressure diastolic 01 mm Hg 01/20/2025 Height 64 in 01/20/2025 Blood pressure systolic 001 mm Hg 01/20/2025 Weight 180 lbs 01/20/2025 BMI 30.89 kg/m2 01/20/2025 Procedures Procedure Date Ordered Date Performed Result Body Sit e UPPER GI ENDOSCOPY 01/20/2025 N/A COLONOSCOPY 01/20/2025 N/A Encounters Encounter Location Date Provider Diagnosis [facility] [address] [place] [address] 01/20/2025 Alexandre Monreal Irritable bowel syndrome with constipation K58.9 ; Colon cancer screening Z12.11 and GERD (gastroesophageal reflux disease) K21.9 Assessments Encounter Date Diagnosis (ICD Code) Assessment Notes Treatment Notes Treatment Clinical Notes Section Notes 01/20/2025 Colon cancer screening (ICD-10 - Z12.11) Overall, Chinyere appears very well and is not having any new or worrisome GI complaints. We did review that her history of abdominal bloating seems quite consistent with irritable bowel syndrome and in relation to her chronic constipation. It does seem that things have improved as her bowel regimen has improved on her diet, exercise, use of Zepbound, and with weight loss. I did advise her to continue all of that. I did recommend a colonoscopy for screening purposes as she has never had one. We did review the rationale for that in regard to colon cancer prevention. I have also recommended an upper endoscopy on the same day given her frequent episodes of reflux. We did review that careful diet and weight loss would help that as well. We did review that the GLP-1 meds can sometimes worsen reflux by delaying gastric emptying. At this time she does not want to start a regular daily prescription PPI but I did advise her we may need to do that depending upon the endoscopic findings and her clinical course. In the meantime she will continue her Tums and xgnj-ayb-fhvxwxa medication as needed. I did advise her that we will do duodenal biopsies to rule out celiac disease as a contributing factor to all of her GI symptoms including the bloating. Full consent has been obtained from her for both procedures, including risks of bleeding and perforation. The procedures will be done with monitored anesthesia care. She was given the below instructions regarding adjustment of her medication for the procedure. She will have a 2-day prep to ensure a good cleanout given her chronic constipation. Chinyere was comfortable with this plan. Thank you again for allowing me to participate in Chinyere's care. I shall continue to keep you advised of her progress. 01/20/2025 Irritable bowel syndrome with constipation (ICD-10 - K58.9) Overall, Chinyere appears very well and is not having any new or worrisome GI complaints. We did review that her history of abdominal bloating seems quite consistent with irritable bowel syndrome and in relation to her chronic constipation. It does seem that things have improved as her bowel regimen has improved on her diet, exercise, use of Zepbound, and with weight loss. I did advise her to continue all of that. I did recommend a colonoscopy for screening purposes as she has never had one. We did review the rationale for that in regard to colon cancer prevention. I have also recommended an upper endoscopy on the same day given her frequent episodes of reflux. We did review that careful diet and weight loss would help that as well. We did review that the GLP-1 meds can sometimes worsen reflux by delaying gastric emptying. At this time she does not want to start a regular daily prescription PPI but I did advise her we may need to do that depending upon the endoscopic findings and her clinical course. In the meantime she will continue her Tums and rdlm-dla-kjyjtmp medication as needed. I did advise her that we will do duodenal biopsies to rule out celiac disease as a contributing factor to all of her GI symptoms including the bloating. Full consent has been obtained from her for both procedures, including risks of bleeding and perforation. The procedures will be done with monitored anesthesia care. She was given the below instructions regarding adjustment of her medication for the procedure. She will have a 2-day prep to ensure a good cleanout given her chronic constipation. Chinyere was comfortable with this plan. Thank you again for allowing me to participate in Chinyere's care. I shall continue to keep you advised of her progress. 01/20/2025 GERD (gastroesophagea l reflux disease) (ICD-10 - K21.9) Overall, Chinyere appears very well and is not having any new or worrisome GI complaints. We did review that her history of abdominal bloating seems quite consistent with irritable bowel syndrome and in relation to her chronic constipation. It does seem that things have improved as her bowel regimen has improved on her diet, exercise, use of Zepbound, and with weight loss. I did advise her to continue all of that. I did recommend a colonoscopy for screening purposes as she has never had one. We did review the rationale for that in regard to colon cancer prevention. I have also recommended an upper endoscopy on the same day given her frequent episodes of reflux. We did review that careful diet and weight loss would help that as well. We did review that the GLP-1 meds can sometimes worsen reflux by delaying gastric emptying. At this time she does not want to start a regular daily prescription PPI but I did advise her we may need to do that depending upon the endoscopic findings and her clinical course. In the meantime she will continue her Tums and ruuo-jql-saltjgw medication as needed. I did advise her that we will do duodenal biopsies to rule out celiac disease as a contributing factor to all of her GI symptoms including the bloating. Full consent has been obtained from her for both procedures, including risks of bleeding and perforation. The procedures will be done with monitored anesthesia care. She was given the below instructions regarding adjustment of her medication for the procedure. She will have a 2-day prep to ensure a good cleanout given her chronic constipation. Chinyere was comfortable with this plan. Thank you again for allowing me to participate in Chinyere's care. I shall continue to keep you advised of her progress. Plan Of Treatment Pending Test Test Name Order Date UPPER GI ENDOSCOPY 01/20/2025 COLONOSCOPY 01/20/2025 Next Appt Details Provider Name:Alexandre Monreal , 05/04/2025 10:30:00 AM, [address] [place] [address] , [place], [place], [phone], Insurance Providers Payer Name Payer Address Payer Phone Subscriber Number Group Number Insured Name Patient Relationship to Insured Coverage Start Date Coverage End Date [facility] [address] [place] [address] [id number] CHINYERE VARELA Self - patient is the insured 5 Medical (General) History Medical History History ICD Code GERD Denies [place],DM,CVA,Lung disease,renal dise ase IBS--Bloating, constipation Surgical History Surgery Date(Month/Year) Tonsils CCY 1996
--- NOTE | 2025-03-12 10:11 | A.OFFPC_ITS ---
Intake Visit Reasons: weight loss med Allergies Penicillins Allergy (Mild, Verified 01/06/25 09:29) rash Medication List - Last Reconciled 03/12/25 by Dave Rodriguez MD Wegovy (semaglutide (weight loss)) 0.25 mg (0.5 mL) subcut QWEEK 30 days NS Tobacco use date assessed: 01/06/25 Dental Screening Dental Screen Date: 09/30/24 HPI weight loss med HPI Details Interval History The patient is a 49-year-old female presenting with gastrointestinal side effects related to medication. Gastrointestinal side effects: - The patient reports the onset of epiga stric discomfort, bloating, constipation, and heartburn since three weeks ago. - Symptoms started after beginning a cou rse of 0.25 mg Wegovy. - The patient previously used Zepbound w ithout adverse effects. - Gained 3 pounds since starting Wegovy, and there has been no weight loss post-initiation of Wegovy therapy. - Described symptoms include epigastric discomfort concentrated around the stomach area, bloating, constipation (which the patient is managing with counteractive measures), and returning heartburn. - The patient notes that during the prio r usage of Zepbound, symptoms were virtually non-existent. - Despite adherence to a weight manageme nt program including exercise (walking two to three times a week), the patient has gained 3 pounds post-initial Wegovy treatment, attributing symptoms to the new medication. Medications: - Wegovy (0.25 mg) for weight management . Social History: - The patient reports attempting weight management through regular walking exercises two to three times a week, covering approximately five miles. - The patient reported being more physic ally active recently. - Current weight reported as 175-178 sherlyn nds, with previous weight of 180 pounds before starting current treatment. Problem List - Gastrointestinal side effects secondar y to Wegovy. - Weight management with pharmacologic i ntervention. Patient Instructions - Continue taking the 0.25 mg dose of We govy while awaiting approval for Zepbound. - Monitor symptoms, particularly gastroi ntestinal discomfort. - Schedule and complete blood test as or dered, not fasting required. - Attend the follow-up appointment on Oc tober . Review of Systems - General: No fever no chills - Neurological: No headaches no dizziness - Ear nose throat: No sore throat no hearing difficulty no ear pain - Cardiovascular: No syncope, no chest pain, no palpitations - Endocrine: No polyuria polydipsia no heat intolerance - Genitourinary: No dysuria , no blood in urine PFSH Family History Father Mental health disorder Social History Housing: House Patient Tobacco Use Status: Never used Tobacco e-Cigarette/Vaping Use: Never Used service: No Current occupational status: employed Cognitive needs: No Hearing needs: No Vision needs: No Questionnaire Thrive Questionnaire Date Thrive assessed: 09/30/24 I am a: Patient What is your living situation today?: I have a steady place to live Within the past 12 months, did the food you bought not last and you didn't have the money to get more?: Never true Within the past 12 months, did you worry whether your food would run out before you got money to buy more?: Never true Do you have trouble paying for medicines?: No Do you have trouble getting transportation to medical appointments?: No Do you have trouble paying your heating and electricity bill?: No Do you have trouble taking care of your child, family member or friend?: No Do you have trouble with day-to-day activities such as bathing, preparing meals, shopping, managing finances, etc.?: No Are you currently unemployed and looking for a job?: No Are you interested in more education?: No Please select the resources that you would like help with: None Currently or been in a relationship where the following occur: No concerns reported THRIVE Score: 0 SANDRA-7 AMB Questionnaire SANDRA-7 Date SANDRA - 7 assessed: 09/30/24 Source: Developed by Drs. Alexandre Torres, Sydnee Bragg, Quirino Acharya and colleagues, with an educational hernando from [employer]. Physical exam (Primary Care) Tobacco/Smoking Status: Tobacco use Status Tobacco use date assessed 01/06/25 03/12/25 10:11 Patient Tobacco Use Status Never used Tobacco 03/12/25 10:11 e-Cigarette/Vaping Use Never Used 03/12/25 10:11 Thrive Assessment: Date of Thrive Assessment Date Thrive assessed 09/30/24 03/12/25 10:11 Currently or been in a relationship where the following occur: No concerns reported Telehealth Telehealth Telehealth Platform: Campaign Monitor Location of provider rendering services: practice address Location of patient: address on file Patient Identification confirmed using: Name, : Yes Telehealth method: video Patient verbally consented to treatment: Yes Patient verbally consented to billing insurance company: Yes Patient informed of any privacy concerns related to visit: Yes Coding Level of Care Code Tele Est Pt Level 4 (10641) Diagnoses Drug side effects T88.7XXA Class 2 obesity due to excess calories without serious comorbidity with body mass index (BMI) of 36.0 to 36.9 in adult E66.09; Z68.36 Obesity classification: adult class 2 (BMI 35 - 39.9) Serious obesity comorbidity presence: without serious comorbidity Body mass index: BMI 36.0-36.9 Abdominal bloating R14.0 Heart burn R12 Epigastric discomfort R10.13 Time Spent (min) 30 Comment face to face, coordination of care , review of chart Assessment & Plan Assessment & Plan (1) Drug side effects: Code(s): T88.7XXA - Unspecified adverse effect of drug or medicament, initial encounter Category: Medical (2) Obesity due to excess calories: Code(s): E66.09 - Other obesity due to excess calories Category: Medical Qualifiers: Obesity classification: adult class 2 (BMI 35 - 39.9) Serious obesity comorbidity presence: without serious comorbidity Body mass index: BMI 36.0- 36.9 Qualified Code(s): E66.09 - Other obesity due to excess calories; Z68.36 - Body mass index [BMI] 36.0-36.9, adult (3) Abdominal bloating: Code(s): R14.0 - Abdominal distension (gaseous) Category: Medical (4) Heart burn: Code(s): R12 - Heartburn Category: Medical (5) Epigastric discomfort: Code(s): R10.13 - Epigastric pain Category: Medical Plan Interval History The patient is a 49-year-old female presenting with gastrointestinal side effects related to medication. Gastrointestinal side effects: - The patient reports the onset of epigastric discomfort, bloating, constipation, and heartburn since three weeks ago. - Symptoms started after beginning a course of 0.25 mg Wegovy. - The patient previously used Zepbound without adverse effects. - Gained 3 pounds since starting Wegovy, and there has been no weight loss post- initiation of Wegovy therapy. - Described symptoms include epigastric discomfort concentrated around the stomach area, bloating, constipation (which the patient is managing with counteractive measures), and returning heartburn. - The patient notes that during the prior usage of Zepbound, symptoms were virtually non-existent. - Despite adherence to a weight management program including exercise (walking two to three times a week), the patient has gained 3 pounds post-initial Wegovy treatment, attributing symptoms to the new medication. Medications: - Wegovy (0.25 mg) for weight management. Social History: - The patient reports attempting weight management through regular walking exercises two to three times a week, covering approximately five miles. - The patient reported being more physically active recently. - Current weight reported as 175-178 pounds, with previous weight of 180 pounds before starting current treatment. Problem List - Gastrointestinal side effects secondary to Wegovy. - Weight management with pharmacologic intervention. Patient Instructions - Continue taking the 0.25 mg dose of Wegovy while awaiting approval for Zepboun d. - Monitor symptoms, particularly gastrointestinal discomfort. - Schedule and complete blood test as ordered, not fasting required. - Attend the follow-up appointment on April 10. Medications: Changed From Wegovy (semaglutide (weight loss)) administer weeks 1 through 4 of therapy 0.25 mg (0.5 mL) subcut QWEEK 30 days 2.5 mL 0RF NS To Wegovy (semaglutide (weight loss)) administer weeks 1 through 4 of therapy 0.5 mg subcut QWEEK 5 mL 0RF 30 days NS
== END 2025-03-12 10:59 | disposition home or self-care (01) ==
LOC: HO.HMCC 06:52
PROVIDERS: Visit Provider Internal Medicine
DX: R14.0 Abdominal distension (gaseous) (principal); E66.09 Other obesity due to excess calories; Z68.36 Body mass index [BMI] 36.0-36.9, adult; R12 Heartburn; R10.13 Epigastric pain

== ENCOUNTER 2025-04-23 08:59 | Outpatient (REF) | payer BC, SELFPAY ==
--- OUTSIDE RECORDS SUMMARY | 2024-09-30 10:20 | XMS_ITS ---
Author Organization [facility] Address [address] [place] [phone] Care Team Providers Care Technology Methodology Consultant Name Role Phone Michael SUTTON, Dave Primary Care Provider Alexandre Mullins [phone] REASON FOR VISIT Patient presents today for a COLON SCREENING, ABDOMINAL DISTENSION Encounters Encounter Location Date Provider Diagnosis [facility] [address] [facility] [address] [place] [phone] 09/30/2024 Alexandre Monreal Plan Of Treatment Next Appt Details Provider Name:Alexandre Monreal , 05/04/2025 10:30:00 AM, [address] [place] [address] , [place], [place], [phone], Progress Notes * CATHERINE VARELAOB:1975 (50 yo F)Acc No.[id number]:09/30/2024 Progress Notes Patient: BILL PERES Provider: Serena Monreal MD :1975 A ge:49 Y S ex:Female Date:09/30/2024 Address: [address] [id number] Pcp:Dave Rodriguez MD Subjective: * Chief Complaints: [...] 09/30/2024 Generated for Jesus bishop/Leti/Bam on: 1 09:56 AM EDT
--- OUTSIDE RECORDS SUMMARY | 2025-04-23 09:56 | XMS_ITS | Patient Health Record ---
Author Organization [facility] Address [address] [place] [address] Care Team Providers Care Border Patrol Agent Name Role Phone Michael SUTTON, [facility] Provider Alexandre Mullins [phone] Allergies Allergen (clinical drug ingredient) Drug/Non Drug Allergy documented on EMR Reaction Allergy Type Onset Date Status Penicillin Unknown Drug Allergy Active Reason For Referral No Information Medications Medication SIG (Take, Route, Fr equency, Duration) Notes Start Date End Date Status Zepbound 10 MG/0.5ML 0.5 mL Subcutaneous ; Duration: 30 day(s) 01/20/2025 Active Immunizations Vaccine Route [...] Status Risk Notes Problem Colon cancer screening (418868311) Colon cancer screening (Z12.11) Active confirmed Problem Irritable bowel syndrome characterized by constipation (042368739) Irritable bowel syndrome with constipation (K58.9) Active confirmed Problem Gastroesophageal reflux disease (894497662) GERD (gastroesophage al reflux disease) (K21.9) Active [...] N/A Encounters Encounter Location Date Provider Diagnosis [facility] [address] [place] [address] 01/20/2025 Alexandre Monreal Irritable bowel syndrome with [...] meantime she will continue her Tums and pxni-kqz-xwxhjrj medication as needed. I did advise her [...] meantime she will continue her Tums and fvfi-szo-ihvbyts medication as needed. I did advise her [...] meantime she will continue her Tums and ojme-arg-yrvxsil medication as needed. I did advise her [...] Provider Name:Alexandre Monreal , 05/04/2025 10:30:00 AM, [address] [place] [address] , [place], [place], [phone], Insurance Providers Payer Name Payer Address Payer Phone Subscriber Number Group Number Insured Name Patient Relationship to Insured Coverage Start Date Coverage End Date [facility] [address] [place] [address] [id number] [id number] VARELA Self - patient is the insured 5 Medical (General) History Medical History History ICD Code GERD Denies [place],DM,CVA,Lung disease,renal dise ase IBS--Bloating, constipation Surgical History Surgery Date(Month/Year) Tonsils CCY 1996
[2025-04-23 10:07] LABS: MANUAL DIFF FLAG NO
[2025-04-23 10:11] LABS: Hematocrit 43.0 % (37.0-47.0); Hemoglobin 14.0 g/dl (12.0-16.0); Imm Gran Abs Auto 0.02 X10*3/uL (0.00-0.03); Imm Gran Pct Auto 0.3 % (0.0-0.4); Lymphocytes Absolute Auto 2.0 X10*3/uL (1.2-4.9); Mean Corpuscular HGB Conc 32.6 g/dl (31.0-35.0); Mean Corpuscular Hemoglobin 30.4 pg (27.0-33.0); Mean Corpuscular Volume 93.3 fL (80.0-98.0); NRBC Abs Auto 0.000 X10*3/uL (0.0-0.012); NRBC Pct Auto 0.0 /100WBC (0.0-0.2); Platelet Count 250 X10*3/uL (160-400); Red Blood Count 4.61 X10*6/uL (4.20-5.50); White Blood Count 6.9 X10*3/uL (4.8-10.8)
[2025-04-23 14:20] LABS: Alanine Aminotransferase 25 U/L (0-31); Albumin Level 4.3 g/dL (3.5-5.0); Alkaline Phosphatase 85 U/L (39-117); Amylase 69 U/L (28-100); Anion Gap 8 (12-20); Aspartate Amino Transferase 23 U/L (5-31); Blood Urea Nitrogen 21 mg/dL (9-16); Calcium 9.9 mg/dL (8.4-10.2); Carbon Dioxide 28 mmol/L (22-29); Chloride 112 mmol/L (96-108); Estimated Glomerular Filt Rate > 60; Lipase 52 U/L (8-78); Potassium 4.4 mmol/L (3.3-5.1); Sodium 144 mmol/L (135-145); Total Protein 7.1 g/dL (6.5-8.0)
== END 2025-04-23 09:00 | disposition home or self-care (01) ==
LOC: HO.HMGCLDS 08:59
PROVIDERS: PCP Internal Medicine; Visit Provider Internal Medicine
DX: R73.01 Impaired fasting glucose (principal); E66.09 Other obesity due to excess calories; Z13.29 Encounter for screening for other suspected endocrine disorder; Z68.36 Body mass index [BMI] 36.0-36.9, adult
CPT/HCPCS: 36415; 80053; 82150; 83690; 83721; 84443; 85025

== ENCOUNTER 2025-04-24 13:05 | Outpatient (AMB) | payer BC, SELFPAY ==
--- OUTSIDE RECORDS SUMMARY | 2024-09-30 10:20 | XMS_ITS ---
Author Organization [facility] Address [address] [place] [phone] Care Team Providers Care Teaseler Name Role Phone Michael SUTTON, Dave Primary Care Provider Alexandre Mullins [phone] REASON FOR VISIT Patient presents today for a COLON SCREENING, ABDOMINAL DISTENSION Encounters Encounter Location Date Provider Diagnosis [facility] [address] [facility] [address] [place] [phone] 09/30/2024 Alexandre Monreal Plan Of Treatment Next Appt Details Provider Name:Alexandre Monreal , 05/04/2025 10:30:00 AM, [address] [place] [address] , [place], [place], [phone], Progress Notes * CATHERINE VARELAOB:1975 (50 yo F)Acc No.[id number]:09/30/2024 Progress Notes Patient: BILL PERES Provider: Serena Monreal MD :1975 A ge:49 Y S ex:Female Date:09/30/2024 Address: [address] [id number] Pcp:Dave Rodriguez MD Subjective: * Chief Complaints: [...] 0 09/30/2024 Generated for Jesus bishop/Leti/Bam on: 1 03:41 PM EDT
[2025-04-24 13:11] VITALS: BP 118/78; PULSE 71; RESP 16; TEMP 36.7; O2SAT 98; BMI 30.4
--- NOTE | 2025-04-24 13:11 | MHC.PC.OV ---
Vital Signs 04/24/25 13:11 Height 5 ft 4 in Weight 177 lb BMI 30.4 BP 118/78 Blood Pressure Location Lt brachial Position Sitting Respiration 16 Pulse 71 Pulse Source Pulse Oximeter Temp 98.0 F Temp Source Oral Pulse Oximetry (%) 98 Oxygen Delivery Method Room Air Intake Visit Reasons: 3m follow up,. 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 resched HPI Details History of Present Illness The patient is a 50-year-old female presenting with concerns related to weight management and medication adverse effects. Weight management: - The patient is on semaglutide 0.5 mg weekly for weight management. - She reports weight fluctuations with a gain and loss of approximately three pounds. - The patient noted that she commenced semaglutide eight weeks prior to the visit, following a switch from Zepbound after January. - She expressed disappointment in the degree of weight loss compared to previous experiences with Zepbound, which she felt was more effective and better tolerated. - Patient attributes part of her reduced physical activity and adherence to lifestyle modifications to her partner Evens's surgery, during which she was less able to engage in walking. - Not currently prioritizing weight changes as there are personal stressors taking precedence. Adverse effects of semaglutide: - The patient reports gastrointestinal side effects including heartburn and constipation, which she describes as common unpleasant effects she did not experience with Zepbound. Social History: - Currently experiencing increased stress and emotional toll due to partner?s recent surgery and health status. - Reports reduced exercise over the past few weeks due to personal circumstances. - Describes work environment as very stressful, fulfilling roles equivalent to three people. - Expresses feeling of exhaustion and considers it secondary to caregiving and professional stressors. Diagnostic Results: - Labs: Recent blood tests reviewed; findings are stable. Problem List - Weight management with semaglutide - Gastrointestinal side effects from semaglutide - Lack of motivation Plan - Continue semaglutide 0.5 mg weekly as patient is gradually losing weight and labs are normal. No increase in dosage to 0.75 mg discussed due to current side effects. - Emphasize non-pharmacological strategies such as exercise and dietary modifications to enhance weight loss given lifestyle constraints. - Address gastrointestinal side effects by recommending small, frequent meals to reduce bloating and nausea associated with reduced intestinal motility from semaglutide. - Consider adjunctive treatment for any persisting psychological distress or fatigue impacts life quality; initiated bupropion 150 mg in the morning to assist with energy levels and possible adjunct appetite regulation. - Follow-up through patient portal to evaluate efficacy and side effect profile of bupropion and adjust management accordingly. f/u 3 M Review of Systems - General: No fever no chills - Neurological: No headaches no dizziness - Ear nose throat: No sore throat no hearing difficulty no ear pain - Cardiovascular: No syncope, no chest pain, no palpitations - Gastrointestinal: No vomiting or diarrhea - Endocrine: No polyuria polydipsia no heat intolerance - Genitourinary: No dysuria , no blood in urine Physical Exam General: No acute distress HEENT: No acute findings Neck: Supple Respiratory system: Able to talk in full sentences, no audible wheeze Cardiovascular: S1-S2 regular in rate and rhythm Gastrointestinal: No pain, but reports bloating and constipation Extremities: No new findings 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 oriented x3 motor intact Skin: Normal turgor PFSH Family History Father Mental health disorder Social History Housing: House Patient Tobacco Use Status: Never used Tobacco e-Cigarette/Vaping Use: Never Used service: No Current occupational status: employed Cognitive needs: No Hearing needs: No Vision needs: No Questionnaire Thrive Questionnaire Date Thrive assessed: 09/30/24 I am a: Patient What is your living situation today?: I have a steady place to live Within the past 12 months, did the food you bought not last and you didn't have the money to get more?: Never true Within the past 12 months, did you worry whether your food would run out before you got money to buy more?: Never true Do you have trouble paying for medicines?: No Do you have trouble getting transportation to medical appointments?: No Do you have trouble paying your heating and electricity bill?: No Do you have trouble taking care of your child, family member or friend?: No Do you have trouble with day-to-day activities such as bathing, preparing meals, shopping, managing finances, etc.?: No Are you currently unemployed and looking for a job?: No Are you interested in more education?: No Please select the resources that you would like help with: None Currently or been in a relationship where the following occur: No concerns reported THRIVE Score: 0 SANDRA-7 AMB Questionnaire SANDRA-7 Date SANDRA - 7 assessed: 04/24/25 Feeling nervous, anxious, or on edge: 0 = Not at all Not being able to stop or control worryin = Not at all Worrying too much about different things: 0 = Not at all Trouble relaxin = Not at all Being so restless that it is hard to sit still: 0 = Not at all Becoming easily annoyed or irritable: 0 = Not at all Feeling afraid as if something awful might happen: 0 = Not at all Total SANDRA-7 score (0-4 normal; 5-9 mild; 10-14 moderate; 15-21 severe): 0 Source: Developed by Drs. Alexandre Torres, Sydnee Bragg, Quirino Acharya and colleagues, with an educational hernando from [employer]. SANDRA-7 Assessment Billing SANDRA-7 Assessment Tool: SANDRA-7 Assessment 62005 Physical exam (Primary Care) Vital Signs: Last Vital Signs Temp 98.0 F 04/24/25 13:11 Pulse 71 04/24/25 13:11 Resp 16 04/24/25 13:11 BP 118/78 04/24/25 13:11 Pulse Ox 98 04/24/25 13:11 Oxygen Delivery Method Room Air 04/24/25 13:11 BMI result Body Mass Index 30.4 Tobacco/Smoking Status: Tobacco use Status Tobacco use date assessed 04/24/25 04/24/25 13:15 Patient Tobacco Use Status Never used Tobacco 04/24/25 13:15 e-Cigarette/Vaping Use Never Used 04/24/25 13:15 Thrive Assessment: Date of Thrive Assessment Date Thrive assessed 09/30/24 04/24/25 13:15 Currently or been in a relationship where the following occur: No concerns reported Coding Level of Care Code Est Pt Level 4 (24970) Diagnoses Lack of motivation Z91.89 Class 2 obesity due to excess calories without serious comorbidity with body mass index (BMI) of 36.0 to 36.9 in adult E66.09; Z68.36 Obesity classification: adult class 2 (BMI 35 - 39.9) Serious obesity comorbidity presence: without serious comorbidity Body mass index: BMI 36.0-36.9 Abdominal bloating R14.0 Heart burn R12 Feeling tired R53.83 Stress at home F43.9 Additional Codes SANDRA-7 Assessment Billing - SANDRA-7 Assessment Tool: SANDRA-7 Assessment 49279 ([id number]) Assessment & Plan Assessment & Plan (1) Lack of motivation: Code(s): Z91.89 - Other specified personal risk factors, not elsewhere classified Category: Medical (2) Obesity due to excess calories: Code(s): E66.09 - Other obesity due to excess calories Category: Medical Qualifiers: Obesity classification: adult class 2 (BMI 35 - 39.9) Serious obesity comorbidity presence: without serious comorbidity Body mass index: BMI 36.0-36.9 Qualified Code(s): E66.09 - Other obesity due to excess calories; Z68.36 - Body mass index [BMI] 36.0-36.9, adult (3) Abdominal bloating: Code(s): R14.0 - Abdominal distension (gaseous) Category: Medical (4) Heart burn: Code(s): R12 - Heartburn Category: Medical (5) Feeling tired: Code(s): R53.83 - Other fatigue Category: Medical (6) Stress at home: Code(s): F43.9 - Reaction to severe stress, unspecified Category: Social Hx Plan Weight management: - The patient is on semaglutide 0.5 mg weekly for weight management. - She reports weight fluctuations with a gain and loss of approximately three pounds. - The patient noted that she commenced semaglutide eight weeks prior to the visit, following a switch from Zepbound after January. - She expressed disappointment in the degree of weight loss compared to previous experiences with Zepbound, which she felt was more effective and better tolerated. - Patient attributes part of her reduced physical activity and adherence to lifestyle modifications to her partner Evens's surgery, during which she was less able to engage in walking. - Not currently prioritizing weight changes as there are personal stressors taking precedence. Adverse effects of semaglutide: - The patient reports gastrointestinal side effects including heartburn and constipation, which she describes as common unpleasant effects she did not experience with Zepbound. Social History: - Currently experiencing increased stress and emotional toll due to partner?s recent surgery and health status. - Reports reduced exercise over the past few weeks due to personal circumstances. - Describes work environment as very stressful, fulfilling roles equivalent to three people. - Expresses feeling of exhaustion and considers it secondary to caregiving and professional stressors. Diagnostic Results: - Labs: Recent blood tests reviewed; findings are stable. Problem List - Weight management with semaglutide - Gastrointestinal side effects from semaglutide - Lack of motivation Plan - Continue semaglutide 0.5 mg weekly as patient is gradually losing weight and labs are normal. No increase in dosage to 0.75 mg discussed due to current side effects. - Emphasize non-pharmacological strategies such as exercise and dietary modifications to enhance weight loss given lifestyle constraints. - Address gastrointestinal side effects by recommending small, frequent meals to reduce bloating and nausea associated with reduced intestinal motility from semaglutide. - Consider adjunctive treatment for any persisting psychological distress or fatigue impacts life quality; initiated bupropion 150 mg in the morning to assist with energy levels and possible adjunct appetite regulation. - Follow-up through patient portal to evaluate efficacy and side effect profile of bupropion and adjust management accordingly. f/u 3 M Medications: New bupropion HCl SR (Wellbutrin SR) 150 mg PO QAM 30 tabs 0RF Refilled semaglutide (weight loss) administer weeks 1 through 4 of therapy 0.5 mg (0.5 mL) subcut QWEEK 2.5 mL 2RF 30 days
--- OUTSIDE RECORDS SUMMARY | 2025-04-24 15:42 | XMS_ITS | Patient Health Record ---
Author Organization [facility] Address [address] [place] [address] Care Team Providers Care Corncob Pipe Supervisor Name Role Phone Michael SUTTON, [facility] Provider Alexandre Mullins [phone] Allergies Allergen (clinical drug ingredient) Drug/Non Drug [...] Status Risk Notes Problem Colon cancer screening ([id number]) Colon cancer screening (Z12.11) Active confirmed Problem Irritable bowel syndrome characterized by constipation (197546988) Irritable bowel syndrome with constipation (K58.9) Active confirmed Problem Gastroesophageal reflux disease (403198260) GERD (gastroesophage al reflux disease) (K21.9) Active [...] N/A Encounters Encounter Location Date Provider Diagnosis [facility] [address] [place] [address] 01/20/2025 Alexandre Monreal Irritable bowel syndrome with [...] meantime she will continue her Tums and ocnc-vgq-rnuajen medication as needed. I did advise her [...] meantime she will continue her Tums and dies-ddo-gjjlwoz medication as needed. I did advise her [...] meantime she will continue her Tums and dfqd-yaw-svgtres medication as needed. I did advise her [...] Provider Name:Alexandre Monreal , 05/04/2025 10:30:00 AM, [address] [place] [address] , [place], [place], [phone], Insurance Providers Payer Name Payer Address Payer Phone Subscriber Number Group Number Insured Name Patient Relationship to Insured Coverage Start Date Coverage End Date [facility] [address] [place] [address] [id number] CHINYERE VARELA Self - patient is the insured 5 Medical (General) History Medical History History ICD Code GERD Denies PA,DM,CVA,Lung disease,renal dise ase IBS--Bloating, constipation Surgical History Surgery Date(Month/Year) Tonsils CCY 1996
== END 2025-04-24 14:47 | disposition home or self-care (01) ==
LOC: HO.HMCC 13:06
PROVIDERS: PCP Internal Medicine; Visit Provider Internal Medicine
DX: Z91.89 Other specified personal risk factors, not elsewhere classified (principal); E66.09 Other obesity due to excess calories; Z68.36 Body mass index [BMI] 36.0-36.9, adult; R14.0 Abdominal distension (gaseous); R12 Heartburn; R53.83 Other fatigue; F43.9 Reaction to severe stress, unspecified

== ENCOUNTER → 2025-04-24 13:05 | Outpatient (BNVA) | payer BC, SELFPAY | PROVIDERS: PCP Internal Medicine; Visit Provider Internal Medicine | DX: R14.0 Abdominal distension (gaseous) (principal); E66.09 Other obesity due to excess calories; R12 Heartburn; R53.83 Other fatigue; F43.9 Reaction to severe stress, unspecified; Z91.89 Other specified personal risk factors, not elsewhere classified; Z68.36 Body mass index [BMI] 36.0-36.9, adult | CPT/HCPCS: 96127 ==

== ENCOUNTER 2025-05-13 09:32 | Day surgery (SDC) | payer BC, SELFPAY ==
--- OUTSIDE RECORDS SUMMARY | 2024-09-30 10:20 | XMS_ITS ---
Author Organization [facility] Address [address] [place] [phone] Care Team Providers Care Hydroelectric Operator Name Role Phone Michael SUTTON, Dave Primary Care Provider Alexandre Mullins [phone] REASON FOR VISIT Patient presents today for a COLON SCREENING, ABDOMINAL DISTENSION Encounters Encounter Location Date Provider Diagnosis [facility] [address] [facility] [address] [place] [phone] 09/30/2024 Alexandre Monreal Plan Of Treatment Next Appt Details Provider Name:Alexandre Monreal , 05/04/2025 10:30:00 AM, [address] [place] [address] , [place], [place], [phone], Progress Notes * CATHERINE VARELAOB:1975 (50 yo F)Acc No.[id number]:09/30/2024 Progress Notes Patient: BILL PERES Provider: Serena Monreal MD :1975 A ge:49 Y S ex:Female Date:09/30/2024 Address: [address] [id number] Pcp:Dave Rodriguez MD Subjective: * Chief Complaints: * 1 . Patient presents today for a COLON SCREENING, ABDOMINAL DISTENSION. * Medical History: Objective: * Vitals: Assessment: Plan: * Treatment: * * The named appointment provid er may or may not be the originator of this progress note, and it is not deemed complete until electronically signed by the appointment provider. Sign off status: Pending * Provider: Serena Monreal MD Date: 0 09/30/2024 Generated for Jesus bishop/Leti/Bam on: 0 03/25/2025 11:19 AM EDT
--- OUTSIDE RECORDS SUMMARY | 2025-03-25 11:19 | XMS_ITS | Patient Health Record ---
Author Organization [facility] Address [address] [place] [address] Care Team Providers Care Leather Sprayer Name Role Phone Michael SUTTON, [facility] Provider Alexandre Mullins [phone] Allergies Allergen (clinical drug ingredient) Drug/Non Drug [...] Status Risk Notes Problem Colon cancer screening (178602712) Colon cancer screening (Z12.11) Active confirmed Problem Irritable bowel syndrome characterized by constipation (880223206) Irritable bowel syndrome with constipation (K58.9) Active confirmed Problem Gastroesophageal reflux disease (264133373) GERD (gastroesophage al reflux disease) (K21.9) Active [...] N/A Encounters Encounter Location Date Provider Diagnosis [facility] [address] [place] [address] 01/20/2025 Alexandre Monreal Irritable bowel syndrome with [...] meantime she will continue her Tums and syiz-ymx-hnvlzde medication as needed. I did advise her [...] meantime she will continue her Tums and kipm-wao-wrflcue medication as needed. I did advise her [...] meantime she will continue her Tums and tnda-hzv-sifxqlh medication as needed. I did advise her [...] Provider Name:Alexandre Monreal , 05/04/2025 10:30:00 AM, [address] [place] [address] , [place], [place], [phone], Insurance Providers Payer Name Payer Address Payer Phone Subscriber Number Group Number Insured Name Patient Relationship to Insured Coverage Start Date Coverage End Date [facility] [address] [place] [address] [id number] CHINYERE VARELA Self - patient is the insured 5 Medical (General) History Medical History History ICD Code GERD Denies [place],DM,CVA,Lung disease,renal dise ase IBS--Bloating, constipation Surgical History Surgery Date(Month/Year) Tonsils CCY 1996
[2025-05-11 10:33] VITALS: BMI 30.9
--- NOTE | 2025-05-11 13:18 | HO.ANESPROP2 ---
Documented by User: Doris Liang NP 05/11/25 13:22 HPI - Anesthesia Eval Consult details Narrative: 50yo F for Upper Endoscopy and Colonoscopy Anesthesia Pre-Procedure Meds Is the patient on any of the following meds?: GLP1/DPP4 PMFSH Active Problems Active Problems: All Active Problems Stress at home (Acute) Feeling tired (Acute) Lack of motivation (Acute) Drug side effects (Acute) Epigastric discomfort (Acute) Heart burn (Acute) Serum calcium elevated (Acute) Osteoarthritis of knees, bilateral (Acute) Abdominal bloating (Acute) Colon cancer screening (Acute) Abnormal EKG (Acute) Palpitation (Acute) Constipation by delayed colonic transit (Acute) Abnormal FSH level (Acute) LFT elevation (Acute) Vitamin D deficiency (Acute) Impaired fasting blood sugar (Acute) Muscle spasm of back (Acute) HNP (herniated nucleus pulposus), lumbar (Acute) Paresthesia of left foot (Acute) Left lumbar radiculitis (Acute) IUD (intrauterine device) in place (Acute) Hot flashes (Acute) Obesity due to excess calories (Acute) Encounter for general adult medical examination with abnormal findings (Acute) Past Medical History Medical History IBS (irritable bowel syndrome) GERD (gastroesophageal reflux disease) Family History Family History Father Mental health disorder Surgical History Surgical History Hx of tonsillectomy Hx of cholecystectomy Social History Social History Housing: House Patient Tobacco Use Status: Never used Tobacco e-Cigarette/Vaping Use: Never Used Use of substances other than those prescribed or required for medical reasons: No Are you DNR?: No Advance Directives: No Advance Directives Information Provided: Yes service: No Current occupational status: employed Cognitive needs: No Hearing needs: No Vision needs: No Meds Allergies Allergy/AdvReac Type Severity Reaction Status Date / Time Penicillins Allergy Mild rash Verified 05/13/25 09:44 Exam Height,Weight and Vital Signs: Height 5 ft 4 in Weight 81.647 kg Assessment and Plan Assessment Anesthesia Assessment: Chart Reviewed Documented by User: Meliza Leal MD 05/13/25 10:39 PMFSH Past Medical History Medical History IBS (irritable bowel syndrome) GERD (gastroesophageal reflux disease) Family History Family History Father Mental health disorder Surgical History Surgical History Hx of tonsillectomy Hx of cholecystectomy History of Problems with Anesthesia: No Social History Social History Housing: House Patient Tobacco Use Status: Never used Tobacco e-Cigarette/Vaping Use: Never Used Use of substances other than those prescribed or required for medical reasons: No Are you DNR?: No Advance Directives: No Advance Directives Information Provided: Yes service: No Current occupational status: employed Cognitive needs: No Hearing needs: No Vision needs: No Meds Allergies Allergy/AdvReac Type Severity Reaction Status Date / Time Penicillins Allergy Mild rash Verified 05/13/25 09:44 Exam Airway Mallampati Class: II TM Dist: >3cm Neck ROM: Full Loose/Missing/Broken Teeth: No Heart: RRR Lungs: CTA Assessment and Plan Assessment Anesthesia Assessment: Anesthesia Plan Discussed Final Anesthetic Review History of Problems with Anesthesia: No NPO: Yes ASA Class: II Final Preanesthetic Review: Meds/Allgs Chart Reviewed, Consent Obtained/Reviewed and Anes Risks/Benef Reviewed Patient Risk: Low Procedure Risk: Intermediate Anesthetic Plan Anesthetic Plan: MAC: Disposition: Standard PACU
[2025-05-13 09:46] VITALS: BMI 30.3
[2025-05-13 09:55] VITALS: BP 110/61; PULSE 64; RESP 14; TEMP 36.6; O2SAT 97
[2025-05-13] MEDS: Lactated Ringers 1,000 ML 100 ML IVCONT (10:12)
[2025-05-13 12:35] VITALS: BP 102/51; PULSE 70; RESP 16; TEMP 36.1; O2SAT 100
--- NOTE | 2025-05-13 12:43 | P.BOP_ITS ---
Brief Operative Note Date of Service: 05/13/25 Pre-op diagnosis: GERD, Screening Post-op diagnosis: other (Hiatal hernia, Esophagitis, Colon polyps) Procedure: EGD with bx, Colonoscopy to the cecum with hot snare polypectomy and bx/removal of polyps Surgeon: Alexandre Monreal MD Anesthesia: MAC Was an Aerial Photograph Interpreter used for this Procedure?: No Estimated blood loss (mL): 2.0 Pathology: other (A. Esophagus 34-35cm B. Gastric polyps C. Cecal polyps) Condition: stable Disposition: PACU
[2025-05-13 12:50] VITALS: BP 112/76; PULSE 65; RESP 15; TEMP 36.3; O2SAT 100
--- NOTE | 2025-05-13 23:03 | OP_ITS ---
DATE OF SERVICE: 05/13/2025 SURGEON: Alexandre Monreal MD INDICATIONS: The patient presents for evaluation of gastroesophageal reflux and colorectal cancer screening. Full consent has been obtained from her for both procedures, including risks of bleeding and perforation. PREOPERATIVE DIAGNOSIS: POSTOPERATIVE DIAGNOSIS: PROCEDURE PERFORMED: Esophagogastroduodenoscopy with biopsies, and colonoscopy to the cecum with biopsy and removal of polyps and hot snare polypectomy. ESTIMATED BLOOD LOSS: COMPLICATIONS: ANESTHESIA: Medication used, monitored anesthesia care. ASSISTANTS: SPECIMENS: PREOPERATIVE DIAGNOSES: Gastroesophageal reflux, colorectal cancer screening. POSTOPERATIVE DIAGNOSES: Gastroesophageal reflux, colorectal cancer screening, esophagitis, rule out Meyer esophagus, hiatal hernia, gastric polyps, colon polyps, diverticulosis, and internal hemorrhoids. DESCRIPTION OF PROCEDURE: The patient was placed in the left lateral decubitus position. The Olympus video gastroscope was passed in the posterior oropharynx and upper esophagus under direct vision. The scope was passed slowly into the distal esophagus. The gastroesophageal junction appeared at 35 cm. Extending from this to 34 cm were short areas of some erosive esophagitis with some linear erosions. There was no ulceration nor mass. The EG junction itself was irregular consistent with possible Meyer's mucosa. There were no lesions noted. The scope entered the stomach. There was a small . The scope was advanced to the pylorus, and the duodenum was cannulated to the descending portion. The duodenum including the bulb appeared normal without mass or ulceration. The scope was withdrawn back in the stomach. The gastric antrum and body appeared normal with good peristalsis. Scope was retroflexed visualizing the proximal stomach carefully, which appeared normal, without any sign of mass or ulceration, other than some hyperplastic appearing gastric polyps. The scope was straightened. Biopsies were obtained from some of the gastric polyps. The scope . Multiple biopsies were obtained between 34 cm and 35 cm. Proximal to this, the esophageal mucosa appeared normal. Scope was withdrawn from the patient. She was turned around for the colonoscopy. The digital rectal exam revealed no abnormalities. The Olympus video pediatric colonoscope was entered into the rectum and advanced easily to the cecum. Once in the cecum, I did identify normal-appearing ileocecal valve and cecal pouch with appendiceal orifice. The entire in the cecum were several 3 mm polyps, which were all biopsied and removed with a cold biopsy forceps. Also in the cecum, adjacent to the ileocecal valve was an approximately 10 mm to 12 mm slightly raised area of what appeared to be some adenomatous tissue. This was all removed with hot snare polypectomy. Multiple pieces were recovered by suction. The remainder of the cecum appeared normal. The scope was then slowly withdrawn assessing all mucosal surfaces carefully. Preparation was excellent. I did not visualize any other polyps, colitis, nor angiodysplasia. There was a mild amount of sigmoid diverticulosis. In the rectum, scope was retroflexed visualizing internal hemorrhoids, but no other pathology. The rectal mucosa . The scope was straightened and withdrawn from the patient. She tolerated both procedures well and was returned to the recovery area in stable condition. IMPRESSION: 1. Gastroesophageal reflux with associated esophagitis and small hiatal hernia, rule out Meyer esophagus. 2. Small . 3. Colon polyps. 4. Diverticulosis. 5. Internal hemorrhoids. PLAN: The results of the pathology will be checked. Assuming the cecal polyps are tubular, particular in regard to the larger one that was removed with the hot snare, I would recommend a repeat colonoscopy in about 2 years for further evaluation to be sure no residual polyp remains. She was advised not to use any aspirin or NSAIDs for 1 week. Given the upper endoscopy findings, she will be given a prescription to use omeprazole 20 mg daily. She does report that she has been using a lot of Tums at home. If there is Meyer esophagus noted on the biopsies without dysplasia, I would recommend a repeat upper endoscopy in 3 years as well. She will be seen in followup as well. MD GILL Marques/EMILY / [id number]
== END 2025-05-13 13:11 | disposition home or self-care (01) ==
PROVIDERS: Anesthesiology; PCP Internal Medicine; Visit Provider Internal Medicine
PROC: (CPT 45385; principal; 2025-05-13 10:30)
DX: Z12.11 Encounter for screening for malignant neoplasm of colon (principal); D12.0 Benign neoplasm of cecum; K57.30 Diverticulosis of large intestine without perforation or abscess without bleeding; K64.8 Other hemorrhoids; K58.9 Irritable bowel syndrome, unspecified; K31.7 Polyp of stomach and duodenum; K20.80 Other esophagitis without bleeding; K44.9 Diaphragmatic hernia without obstruction or gangrene; Z79.85 Long-term (current) use of injectable non-insulin antidiabetic drugs; Z88.0 Allergy status to penicillin; Z90.49 Acquired absence of other specified parts of digestive tract
CPT/HCPCS: 45385; 45380; 43239; 36415; 84702; 88305; 88313; 88342; J2003; J2704; J3010